=== PATIENT | male | born 2000 | race Caucasian/White ===

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

== ENCOUNTER 2022-04-25 15:36 | Emergency (ER) | payer OTHER, SELFPAY ==
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
[2022-04-25 15:50] VITALS: BP 132/70; PULSE 77; RESP 20; TEMP 37.1; O2SAT 98; BMI 21.0
[2022-04-25 16:58] VITALS: BP 132/70; PULSE 77; RESP 22; TEMP 37.1; O2SAT 98
== END 2022-04-25 16:58 | disposition home or self-care (01) ==
PROVIDERS: Emergency Provider Nurse Practitioner Family
DX: J32.8 Other chronic sinusitis (principal); B97.89 Other viral agents as the cause of diseases classified elsewhere
CPT/HCPCS: 99212; 99213; C9803; G0463; U0003; U0005

== ENCOUNTER 2022-05-01 09:12 | Emergency (ER) | payer OTHER, SELFPAY ==
[2022-05-01 09:13] VITALS: BP 129/89; PULSE 58; RESP 20; TEMP 36.6; O2SAT 99; BMI 20.9
[2022-05-01 09:28] VITALS: BMI 20.9
--- NOTE | 2022-05-01 09:28 | PC.NURSE ---
SHELLI PALOMINO at
--- NOTE | 2022-05-01 09:29 | CT_ITS ---
FINAL REPORT TECHNIQUE: Noncontrast CT exam of the abdomen and pelvis. This study was performed with techniques to keep radiation doses as low as reasonably achievable (ALARA). Individualized dose reduction techniques using automated exposure control or adjustment of mA and/or kV according to the patient's size were employed. CLINICAL HISTORY: L flank pain rad to groin FINDINGS: Abdomen: Lung bases are clear. Liver, gallbladder, spleen, pancreas and adrenal glands have a normal CT appearance in their limited unenhanced state. The kidneys show moderate left hydronephrosis and hydroureter secondary to 2 adjacent left UVJ stones measuring up to 3 mm and 4 mm in diameter. There are bilateral caliceal stones measuring 2 mm or less. No obvious renal mass is present. Pelvis: 2 adjacent the left UVJ stones are seen. Bladder is unremarkable. The appendix is normal. The bowel is unremarkable. No fluid collection or adenopathy is seen. IMPRESSION: 1. Moderate left hydronephrosis and hydroureter secondary to 2 adjacent left UVJ stones. 2. Bilateral nephrolithiasis. Reviewed, Interpreted and Dictated by Wally Wren MD Transcribed by Lorena Burris Authenticated and . [facility]
--- NOTE | 2022-05-01 09:30 | HMH.EDGENADL ---
Discharge Plan Disposition Patient Disposition: Home, Self-Care Condition: Good Prescriptions Prescriptions: New sulfamethoxazole-trimethoprim 800-160 mg tablet 1 tab PO BID 14 Days Qty: 28 0RF tamsulosin [Flomax] 0.4 mg capsule 0.4 mg PO DAILY 7 Days Qty: 7 0RF ondansetron 4 mg tablet,disintegrating 4 mg PO Q8H PRN (Reason: nausea and vomiting) 4 Days Qty: 12 0RF oxycodone 5 mg tablet 5 mg PO Q8H PRN (Reason: pain) Qty: 12 0RF ketorolac 10 mg tablet 10 mg PO Q8H PRN (Reason: pain) Qty: 20 0RF No Action naproxen 500 mg tablet 500 mg PO BID Label Comments: TAKE 1 TABLET 2 TIMES EACH DAY amoxicillin [amoxicillin] 500 mg tablet 500 mg PO TID 10 Days Qty: 30 0RF benzonatate [benzonatate] 100 mg capsule 100 mg PO TIDP PRN (Reason: Cough) Qty: 30 0RF methylprednisolone 4 mg Tablets,Dose Pack 4 mg PO DIRECTED Qty: 21 0RF Referrals Follow up/Referrals: Provider,Referral, MD [Primary Care Provider] - See instructions Activity Restrictions/Add. Instructions Additional Instructions/Restrictions: You were evaluated in the emergency department today and diagnosed with kidney stones. Please pick out hand your prescriptions at the pharmacy and take them as prescribed. You may follow-up outpatient with urology. We spoke with Dr. Grimm with [facility] regarding your care. You may call their office to set up an appointment at . Do not drive or operate heavy machinery while taking narcotic pain medication. Return to the emergency department for any new or worsening symptoms, such as fever, chills, intractable nausea and vomiting, worsening pain, or other concerns. Clinical Impressions Clinical Impression: Ureterolithiasis, Acute UTI Stand Alone Forms Stand Alone Forms: Work/School Release Instructions Patient Instructions: DI for Kidney Stones, DI for Urinary Tract Infection (UTI), DI for Acute Pain -- Adult Discharge ED Provider: Leia Amin General Adult HPI General Chief complaint: PAIN Stated complaint: pain in testicles, blood in urine Time Seen by Provider: 05/01/22 09:14 History of Present Illness HPI narrative: This patient is a 21-year-old male who denies significant past medical history presenting to the emergency department for evaluation of severe left flank pain radiating to his left testicle that started this morning. The pain is sharp and constant. Nothing seems to make it better or worse. He also notes that he has had blood in his urine. He denies any history of anything like this in the past. He denies any recent trauma. He is also experiencing nausea, chills, and diaphoresis. He also denies any testicular swelling, redness, or other concerns. Related Data Home Medications Medication Instructions Recorded Confirmed naproxen 500 mg tablet 500 mg PO BID . 04/25/22 04/25/22 Previous Rx's Medication Instructions Recorded amoxicillin 500 mg tablet 500 mg PO TID 10 days #30 tabs 04/25/22 benzonatate 100 mg capsule 100 mg PO TIDP PRN Cough #30 caps 04/25/22 methylprednisolone 4 mg tablets in 4 mg PO DIRECTED #21 tabs 04/25/22 a dose pack ketorolac 10 mg tablet 10 mg PO Q8H PRN pain #20 tabs 05/01/22 ondansetron 4 mg disintegrating 4 mg PO Q8H PRN nausea and 05/01/22 tablet vomiting 4 days #12 tabs oxycodone 5 mg tablet 5 mg PO Q8H PRN pain #12 tabs 05/01/22 sulfamethoxazole 800 1 tab PO BID 14 days #28 tabs 05/01/22 mg-trimethoprim 160 mg tablet tamsulosin 0.4 mg capsule (Flomax) 0.4 mg PO DAILY 7 days #7 caps 05/01/22 Allergies Allergy/AdvReac Type Severity Reaction Status Date / Time No Known Allergies Allergy Verified 04/25/22 15:57 [facility] Disclaimer: The information contained in this section may have been updated after the patient was seen, as this information can be updated by other users. Social History Smoking Status: Never smoker alcohol inta
[2022-05-01 09:36] LABS: Microscopic, Urine URINE MICROSCOPIC (MICROSCOPIC)
--- NOTE | 2022-05-01 09:38 | PC.NURSE ---
pt changed into a gown
--- NOTE | 2022-05-01 09:39 | PC.NURSE ---
pt to CT via wheelchair
[2022-05-01 09:40] LABS: Appearance,Urine TURBID (Clear); Bilirubin,Urine Negative (Negative); Blood, Urine 3+ (Negative); Color,Urine RED (Yellow); Glucose,Urine (UA) Negative (Negative); Ketones,Urine TRACE (Negative); Leukocyte Esterase,Urine TRACE (Negative); Nitrate,Urine POSITIVE (Negative); PH,Urine 7.5 (5.0-8.5); Protein,Urine 2+ (Negative)
[2022-05-01 09:42] LABS: Chloride 106 mmol/L (98-107); Potassium 3.6 mmoL/L (3.5-5.1); Sodium 143 mmol/L (136-145)
[2022-05-01 09:44] LABS: Alanine Aminotransferase 32 U/L (12-78); Aspartate Amino Transferase 28 U/L (17-59); Blood Urea Nitrogen 12 mg/dl (9-20); Creatinine Clearance Estimated 104 mL/min (50-200); Estimated Glomerular Filt Rate 86 ml/min (>60); GFR (African American) 104 ML/MIN (>60)
[2022-05-01 09:45] LABS: Albumin Level 4.6 g/dl (3.5-5.0); Albumin/Globulin Ratio 1.2 (1.1-1.8); Alkaline Phosphatase 89 U/L (38-126); Anion Gap 13.6 mEq/L (5-15); Bilirubin,Total 0.4 mg/dl (0.2-1.3); Calcium 9.3 mg/dl (8.4-10.2); Carbon Dioxide 27 mmol/L (22.0-30.0); Globulin 3.7 g/dL (1.3-3.2); Glucose 120 mg/dl (74-100); Total Protein,Serum 8.3 g/dl (6.3-8.2)
--- NOTE | 2022-05-01 09:49 | PC.NURSE ---
pt return from CT scan, reports pain has improved, sitting up in bed. States no needs at this time
[2022-05-01 09:51] LABS: Basophils # 0.1 K/mm3 (0-0.2); Basophils % 1.2 % (0.1-2.0); Eosinophils # 0.1 K/mm3 (0.0-0.4); Eosinophils % 1.4 % (0.1-12.0); Hematocrit 45.4 % (42.0-52.0); Hemoglobin 16.1 g/dL (14.1-18.0); Lymphocytes % 26.9 % (10-50); Mean Corpuscular HGB Conc 35.4 g/dL (31.8-35.4); Mean Corpuscular Hemoglobin 30.2 pg (27.0-31.2); Mean Corpuscular Volume 85.4 fl (80-94); Monocytes # 0.3 K/mm3 (0.1-1.0); Monocytes % 4.5 % (1.7-9.3); Neutrophils # 4.8 K/mm3 (1.8-7.8); Platelet Count 340 K/mm3 (142-424); Red Blood Count 5.31 M/mm3 (4.60-6.20); Red Cell Distribution Width 12.8 % (11.5-17.5); White Blood Count 7.3 K/mm3 (4.5-13.0)
[2022-05-01 09:55] LABS: Bacteria,Urine Trace /lpf; RBC,Urine TNTC #/hpf (0-3); WBC,Urine Occasional #/hpf (0-3)
[2022-05-01 09:57] VITALS: BP 132/78; PULSE 60; O2SAT 100
[2022-05-01 10:00] VITALS: BP 139/80; PULSE 59; O2SAT 100
[2022-05-01 10:31] VITALS: BP 130/62; PULSE 71; O2SAT 98
--- NOTE | 2022-05-01 10:44 | PC.NURSE ---
Rounded on patient, pts family at [facility]. no other needs at this time. call light within reach
--- NOTE | 2022-05-01 10:46 | PC.NURSE ---
pt ambulatory to restroom without complications
--- NOTE | 2022-05-01 10:50 | PC.NURSE ---
Contacting [facility] for Urology consult
--- NOTE | 2022-05-01 10:54 | PC.NURSE ---
Spoke with Lila in Radiology for an imaging disc
[2022-05-01 11:00] VITALS: BP 121/70; PULSE 67; O2SAT 98
--- NOTE | 2022-05-01 11:42 | PC.NURSE ---
Spoke with Yuliana at [facility] an she reports the patient is on a wait-list with [facility] at this time and [facility] cannot accept patient due to capacity
--- NOTE | 2022-05-01 11:58 | PC.NURSE ---
spoke with [facility] staff, states pt is on a wait list at [facility], they will call us when a bed is available. [facility], [facility] and [facility] had no bed availability.
--- NOTE | 2022-05-01 12:04 | PC.NURSE ---
Called [facility] about patient, they took info and stated they would call back and Dr would be Dr Grimm
--- NOTE | 2022-05-01 13:00 | PC.NURSE ---
SHELLI PALOMINO speaking with [facility]
[2022-05-01 13:34] VITALS: BP 137/80; PULSE 89; RESP 17; TEMP 36.8; O2SAT 97
== END 2022-05-01 13:41 | disposition home or self-care (01) ==
PROVIDERS: Emergency Provider Emergency Medicine
DX: N20.0 Calculus of kidney (principal); N39.0 Urinary tract infection, site not specified
CPT/HCPCS: 74176; 80053; 81001; 85025; 87086; 96361; 96365; 96375; 99285; J0696; J2405

== ENCOUNTER 2024-03-02 08:32 | Emergency (ER) | payer OTHER, SELFPAY ==
[2024-03-02] VITALS (7 sets, daily range): BP systolic 124–155; BP diastolic 78–90; PULSE 56–96; RESP 16–20; TEMP 36.8; O2SAT 96–100; BMI 18.1
[2024-03-02 09:00] LABS: Microscopic, Urine URINE MICROSCOPIC (MICROSCOPIC)
[2024-03-02 09:06] LABS: Basophils # 0.1 K/mm3 (0-0.2); Basophils % 0.6 % (0.1-2.0); Eosinophils % 0.4 % (0.1-12.0); Hematocrit 45.5 % (42.0-52.0); Hemoglobin 16.1 g/dL (14.1-18.0); Lymphocytes # 0.9 K/mm3 (0.7-4.5); Lymphocytes % 11.8 % (10-50); Mean Corpuscular HGB Conc 35.4 g/dL (31.8-35.4); Mean Corpuscular Hemoglobin 30.8 pg (27.0-31.2); Mean Platelet Volume 7.6 fl (7.4-10.4); Monocytes # 0.5 K/mm3 (0.1-1.0); Monocytes % 6.8 % (1.7-9.3); Neutrophils # 6.4 K/mm3 (1.8-7.8); Neutrophils % 80.5 % (37.0-80.0); Platelet Count 234 K/mm3 (142-424); Red Blood Count 5.23 M/mm3 (4.60-6.20); Red Cell Distribution Width 13.1 % (11.5-17.5)
[2024-03-02 09:13] LABS: Alanine Aminotransferase 18 U/L (12-78); Albumin/Globulin Ratio 1.5 (1.1-1.8); Alkaline Phosphatase 90 U/L (38-126); Anion Gap 16.8 mEq/L (5-15); Aspartate Amino Transferase 25 U/L (17-59); Bilirubin,Total 1.1 mg/dl (0.2-1.3); Blood Urea Nitrogen 14 mg/dl (9-20); Calcium 9.8 mg/dl (8.4-10.2); Carbon Dioxide 25 mmol/L (22.0-30.0); Chloride 103 mmol/L (98-107); Creatinine Clearance Estimated 89 mL/min (50-200); Estimated Glomerular Filt Rate 85 ml/min (>60); GFR (African American) 102 ML/MIN (>60); Globulin 3.4 g/dL (1.3-3.2); Glucose 105 mg/dl (74-100); Potassium 3.8 mmoL/L (3.5-5.1); Sodium 141 mmol/L (136-145); Total Protein,Serum 8.4 g/dl (6.3-8.2)
[2024-03-02 09:14] LABS: Appearance,Urine CLEAR (Clear); Blood, Urine 1+ (Negative); Color,Urine YELLOW (Yellow); Glucose,Urine (UA) Negative (Negative); Ketones,Urine 1+ (Negative); Leukocyte Esterase,Urine Negative (Negative); Nitrate,Urine Negative (Negative); Protein,Urine Negative (Negative); Specific Gravity, Urine 1.025 (1.005-1.030)
[2024-03-02 09:17] LABS: Bilirubin,Urine Negative (Negative)
[2024-03-02 09:20] LABS: Lactic Acid 1.4 mmol/L (0.7-2.1)
[2024-03-02] MEDS: KETOROLAC 30MG/ML VIAL 15 MG IV (09:20)
[2024-03-02] MEDS: POLYETHYLENE GLYCOL 3350 17 GM PACKET PO (09:21)
--- NOTE | 2024-03-02 09:45 | HMH.EDGENADL ---
Discharge Plan Disposition Chief Complaint: Abdominal Pain Prescriptions Prescriptions: No Action naproxen 500 mg tablet 500 mg PO BID Patient Comments: TAKE 1 TABLET 2 TIMES EACH DAY amoxicillin [amoxicillin] 500 mg tablet 500 mg PO TID 10 Days Qty: 30 0RF benzonatate [benzonatate] 100 mg capsule 100 mg PO TIDP PRN (Reason: Cough) Qty: 30 0RF methylprednisolone 4 mg Tablets,Dose Pack 4 mg PO DIRECTED Qty: 21 0RF sulfamethoxazole-trimethoprim 800-160 mg tablet 1 tab PO BID 14 Days Qty: 28 0RF tamsulosin [Flomax] 0.4 mg capsule 0.4 mg PO DAILY 7 Days Qty: 7 0RF ondansetron 4 mg tablet,disintegrating 4 mg PO Q8H PRN (Reason: nausea and vomiting) 4 Days Qty: 12 0RF oxycodone 5 mg tablet 5 mg PO Q8H PRN (Reason: pain) Qty: 12 0RF ketorolac 10 mg tablet 10 mg PO Q8H PRN (Reason: pain) Qty: 20 0RF Referrals Follow up/Referrals: Provider,Referral, MD [Primary Care Provider] - See instructions Activity Restrictions/Add. Instructions Additional Instructions/Restrictions: Take 1 capful of MiraLAX daily until having 1-2 soft bowel movements per day. Call your family doctor to establish care for this visit to the emergency department and schedule follow-up within 48 hours to ensure improvement. If you have any worsening of your condition or any other concerning signs or symptoms, return to the emergency department or your primary care doctor for further evaluation. Clinical Impressions Clinical Impression: Left lower quadrant abdominal pain Instructions Patient Instructions: DI for Acute Abdominal Pain Print Language Print Language: Monegasque Discharge ED Provider: Robel Wong General Adult HPI General Chief complaint: Abdominal Pain Stated complaint: back and abd pain Time Seen by Provider: 03/02/24 08:50 Mode of Arrival: Ambulatory Source of Information: Patient Limitations: No Limitations Description of Symptoms (Recalled from ER Triage Doc. by RN): pt states he has pain in his right lower abdomen that he describes feels empty . pt states he also has been having lower back pain since friday that is more so in his tail bone. pt states he has not been able to eat and he did force himself to have a bowel movement this morning that was hard and black. History of Present Illness HPI narrative: Please note that above description of symptoms, in this electronic medical record under categorization of recalled from ER triage doctor by RN are reflective of an initial nursing assessment, however, is not reflective of my full history and physical exam that was personally taken and clarified. Consequentially, this preceding description of symptoms, which may include the patient's categorized chief complaint in the EMR, do not reflect my personal clinical impression, and the ultimate description of history of present illness and patient stated complaints should be deferred to this section of the note. Unless stated otherwise or congruent with this section of the note, additional signs, symptoms, or incongruence should be interpreted as inaccurate with my clinical impression. Related Data Home Medications ?Medication ?Instructions ?Recorded ?Confirmed naproxen 500 mg tablet 500 mg PO BID . 04/25/22 04/25/22 Previous Rx's ?Medication ?Instructions ?Recorded amoxicillin 500 mg tablet 500 mg PO TID 10 days #30 tabs 04/25/22 benzonatate 100 mg capsule 100 mg PO TIDP PRN Cough #30 caps 04/25/22 methylprednisolone 4 mg tablets in 4 mg PO DIRECTED #21 tabs 04/25/22 a dose pack ketorolac 10 mg tablet 10 mg PO Q8H PRN pain #20 tabs 05/01/22 ondansetron 4 mg disintegrating 4 mg PO Q8H PRN nausea and 05/01/22 tablet vomiting 4 days #12 tabs oxycodone 5 mg tablet 5 mg PO Q8H PRN pain #12 tabs 05/01/22 sulfamethoxazole 800 1 tab PO BID 14 days #28 tabs 05/01/22 mg-trimethoprim 160 mg tablet tamsulosin 0.4 mg capsule (Flomax) 0.4 mg PO DAILY 7 days #7 caps 05/01/22 Allergies Allergy/AdvReac Type Severity Reaction Status Date / Time No Known Allergies Allergy Verified 04/25/22 15:57 [facility] Disclaimer: The information contained in this section may have been updated after the patient was seen, as this information can be updated by other users. Social History Smoking Status: Current every day smoker tobacco type: smokeless tobacco alcohol intake: never current occupational status: other ROS Obtained: Yes All systems reviewed & no additional complaints except as documented Physical Exam General General appearance: alert Head Head exam: atraumatic and normocephalic Eye Eye exam: Present normal appearance, PERRL and EOMI Neck Neck exam: Present normal inspection, full ROM and trachea midline Respiratory Respiratory exam: Absent respiratory distress, wheezes, stridor, accessory muscle use or prolonged expiratory phase Cardiovascular Cardiovascular exam: Present other (Pulses equal symmetric in upper and lower extremities) Abdominal Exam Abdominal exam: Present soft; Absent distention, tenderness, guarding, rebound, Vergara's sign, tenderness at McBurney's Point or pulsatile mass Extremities Exam Extremities exam: Absent edema Neurological Exam Neurological exam: Present alert, oriented X3 and CN II-XII intact; Absent motor sensory deficit Skin Skin exam: Present warm and dry; Absent diaphoresis or erythema Medical Decision Making Medical Records Medical records reviewed: Yes I reviewed the patient's medical records. Screening: Per USPSTF and CDC recommendations, given the prevalence of disease in our region, it is our hospital?s policy to screen for HIV and viral Hepatitis for all patients aged 18 and over and those with ongoing risk factors. Edmund Inquiry Pt receiving controlled substance: No Edmund was queried for this patient: No Vital Signs: 03/02/24 08:33 03/02/24 08:43 03/02/24 09:15 Temperature 98.3 F Temperature Source Oral Pulse Rate 96 H 64 Pulse Rate [Right Brachial] 84 Respiratory Rate 20 Blood Pressure [Right Arm] 155/90 H Blood Pressure Mean [Right Arm] 111 Blood Pressure Source [Right Arm] Automatic Cuff Blood Pressure Position [Right Arm] Supine 02 Sat by Pulse Oximetry 100 100 96 Oxygen Delivery Method Room Air 03/02/24 09:45 03/02/24 10:15 03/02/24 10:45 Temperature Temperature Source Pulse Rate 60 56 L 77 Pulse Rate [Right Brachial] Respiratory Rate Blood Pressure [Right Arm] Blood Pressure Mean [Right Arm] Blood Pressure Source [Right Arm] Blood Pressure Position [Right Arm] 02 Sat by Pulse Oximetry 97 98 99 Oxygen Delivery Method Lab Data Lab Results 03/02/24 08:45: WBC 8.0, RBC 5.23, Hgb 16.1, Hct 45.5, MCV 87.0, MCH 30.8, MCHC 35.4, RDW 13.1, Plt Count 234, MPV 7.6, Neut % (Auto) 80.5 H, Lymph % (Auto) 11.8, [place] % (Auto) 6.8, Eos % (Auto) 0.4, Baso % (Auto) 0.6, Neut # (Auto) 6.4, Lymph # (Auto) 0.9, [place] # (Auto) 0.5, Eos # (Auto) 0.0, Baso # (Auto) 0.1, Sodium 141, Potassium 3.8, Chloride 103, Carbon Dioxide 25, Anion Gap 16.8 H, BUN 14, Creatinine 1.10, Estimated Creat Clear 89, Estimated GFR 85, Est GFR ( Amer) 102, Glucose 105 H, Calcium 9.8, Total Bilirubin 1.1, AST 25, ALT 18, Alkaline Phosphatase 90, Total Protein 8.4 H, Albumin 5.0, Globulin 3.4 H, Albumin/Globulin Ratio 1.5 03/02/24 08:52: Urine Color Yellow, Urine Appearance Clear, Urine pH 6.0, Ur Specific [place] 1.025, Urine Protein Negative, Urine Glucose (UA) Negative, Urine Ketones 1+, Urine Blood 1+ A, Urine Nitrate Negative, Urine Bilirubin Negative, Urine Urobilinogen 1.0, Ur Leukocyte Esterase Negative, Urine RBC Occasional, Urine WBC Occasional, Ur Squamous Epith Cells Occasional, Urine Bacteria None 03/02/24 08:54: Lactate 1.4, Direct Bilirubin 0.4, Lipase 45 03/02/24 08:45 03/02/24 08:45 Orders (Tests/Meds): ED MEDICATIONS Generic Name Dose Route Start Last Admin Trade Name Freq PRN Reason Stop Dose Admin Sodium Chloride 10 ml 03/02/24 08:51 Sodium Chloride 0.9% 10ml Flush Syringe IV 04/01/24 08:50 NEEDED PRN Maintain IV Site Discontinued Medications Generic Name Dose Route Start Last Admin Trade Name Freq PRN Reason Stop Dose Admin Iopamidol 75 ml 03/02/24 10:39 03/02/24 10:40 Iopamidol-370 (76%);100ml Bottle IV 03/02/24 10:40 75 ml ONCE ONE Administration Ketorolac Tromethamine 15 mg 03/02/24 09:10 03/02/24 09:20 Ketorolac 30mg/Ml Vial IV 03/02/24 09:11 15 mg ONCE ONE Administration Polyethylene Glycol 17 gm 03/02/24 09:10 03/02/24 09:21 Polyethylene Glycol 3350 17 Gm Packet PO 03/02/24 09:11 17 gm ONCE ONE Administration Sodium Chloride 10 ml 03/02/24 10:39 03/02/24 10:40 Sodium Chloride 0.9% 10ml Syr (Rad Only) IV 03/02/24 10:40 10 ml ONCE ONE Administration ORDERS Category Date Time Status CT abdomen pelvis w con Stat Cat Scan 03/02/24 10:29 Completed Bilirubin,Direct Stat Lab 03/02/24 08:54 Completed Complete Blood Count Auto Diff Stat Lab 03/02/24 08:45 Completed Comprehensive Metabolic Panel Stat Lab 03/02/24 08:45 Completed HIV (1&2) Antibody Rapid Stat Lab 03/02/24 08:45 Received Hep C Ab with Reflex to RNA Stat Lab 03/02/24 08:45 Received Lactic Acid Stat Lab 03/02/24 08:54 Completed Lipase Stat Lab 03/02/24 08:54 Completed UA [Urinalysis and Microscopic] Stat Lab 03/02/24 08:52 Completed Medical Decision Narrative: 23-year-old male no relevant medical history presenting with abdominal pain. Patient states that he is chronically constipated, last bowel movement was today and was dark, which is what prompted him to come in. States he was taking Pepto-Bismol for the last day in order to help his abdominal discomfort. States that is 6 out of 10, left lower quadrant, does not radiate. Still passing gas, no abdominal surgical history. No vomiting. No flank tenderness. No fevers or chills or any other relevant history. Also denies any bulging in his groin, scrotum, testicular pain or penile pain. Has not taken anything for the pain. History was obtained via conversation with patient. On arrival, patient hemodynamically stable, alert, oriented x4, appropriate, GCS 15, moving all extremities spontaneously, pupils equal and reactive to light. Full physical exam performed and significant for well-appearing male no acute distress. Abdomen soft, nontender, nondistended. No overlying skin change. No flank tenderness. Unremarkable exam overall. Differential includes constipation, enteritis, gastritis, gas pains, pancreatitis, SBO, colitis, diverticulitis, nephrolithiasis, UTI, cholecystitis, choledocholithiasis, appendicitis, less likely torsion, hepatitis, aortic pathology, mesenteric ischemia among others. Patient placed on continuous cardiac monitoring and continuous pulse ox with initial blood pressure 155/90, heart rate 84, saturation 100% on room air. Patient was given Toradol and MiraLAX for symptomatic management and correction of underlying abnormalities. Workup independently interpreted and significant for normal white count, nonactionable CBC. Chemistry nonactionable. Lipase negative. Urinalysis with isolated blood. On independent interpretation of imaging, no acute intra-abdominal abnormality. Phleboliths in the left pelvis. See radiology read for full review of final results. On reevaluation, patient resting comfortably. Given patient presentation, workup, history, this most likely represents passed nephrolithiasis versus gas pains. Because I do not have a definitive diagnosis, close return precautions were discussed. Recommended patient follow-up with his family doctor. He voices understanding. Because patient at baseline without signs or symptoms of clinical decompensation, deemed appropriate for discharge. Results were relayed to patient who voiced understanding and were agreeable to outpatient management and follow up. I discussed my clinical impression with patient and answered all questions. At this time, the evidence for any other entities in the differential is insufficient to warrant any further testing or ED observation. This was explained as well. Advisory was given that persistent or worsening symptoms require further evaluation. I confirmed the understanding of this discussion. Family Service Counselor disclaimer Much of this encounter note is an electronic portfolio strategist spoken language to printed text. Electronic portfolio strategist of the spoken language may permit errors. Although I have reviewed the note, some errors may still exist. Critical Care Critical Care Time Critical Care Time: No
[2024-03-02 10:16] LABS: RBC,Urine Occasional #/hpf (0-3); Squamous Epithelial Cell,Urine Occasional #/hpf (0-5); WBC,Urine Occasional #/hpf (0-3)
--- NOTE | 2024-03-02 10:29 | CT_ITS ---
FINAL REPORT TECHNIQUE: Thin section axial images were obtained through the abdomen after intravenous contrast. Reconstruction images were obtained from the axial data. Exam was performed using dose reduction techniques. This study was performed with techniques to keep radiation doses as low as reasonably achievable (ALARA). Individualized dose reduction techniques using automated exposure control or adjustment of mA and/or kV according to the patient's size were employed. CLINICAL HISTORY: LLQ pain, hematuria COMPARISON: 05/01/2022 FINDINGS: The lung bases are clear. The liver is homogeneous. The gallbladder is present. The spleen, adrenal glands, and pancreas are unremarkable. There is no hydronephrosis or solid renal mass. There are a few tiny nonobstructing right renal stones. The previously seen left distal ureteral stones on the prior CT of 2022 are no longer visualized. Abdominal GI tract is without acute abnormality. There is no abdominal lymphadenopathy or ascites. The pelvic solid organs are unremarkable. The pelvic portions of the GI tract, including the appendix, are without acute abnormality. There is no pelvic lymphadenopathy or ascites. No acute osseous abnormalities identified. IMPRESSION: No CT evidence of acute intra-abdominal or intrapelvic abnormality. Reviewed, Interpreted and Dictated by Noa Russ MD Transcribed by Valarie Devlin Authenticated and [facility]
[2024-03-02 10:35] LABS: Bilirubin,Direct 0.4 mg/dl (0.0-0.4); Lipase 45 U/L (23-300)
[2024-03-02] MEDS: IOPAMIDOL-370 (76%);100ML BOTTLE 75 ML IV (10:40)
[2024-03-02] MEDS: SODIUM CHLORIDE 0.9% 10ML SYR (RAD ONLY) 10 ML IV (10:40)
[2024-03-02 13:48] LABS: HIV (1&2) Antibody Rapid NONREACTIVE (NONREACTIVE)
[2024-03-03 08:22] LABS: HCV Ab Non Reactive (Non Reactive)
== END 2024-03-02 12:57 | disposition home or self-care (01) ==
PROVIDERS: Emergency Provider Emergency Medicine
DX: K59.00 Constipation, unspecified (principal); R10.32 Left lower quadrant pain; M54.50 Low back pain, unspecified
CPT/HCPCS: 74177; 80053; 81001; 82248; 83605; 83690; 85025; 86803; 87389; 96374; 99285; J1885; Q9967

== ENCOUNTER 2024-03-02 19:46 | Emergency (ER) | payer OTHER, SELFPAY ==
[2024-03-02 19:46] VITALS: BP 115/63; PULSE 55; RESP 20; TEMP 36.7; O2SAT 99; BMI 18.1
[2024-03-02 20:16] VITALS: BP 115/63; PULSE 50; O2SAT 99
--- NOTE | 2024-03-02 20:28 | HMH.EDGENADL ---
Discharge Plan Disposition Patient Disposition: Home, Self-Care Condition: Good Prescriptions Prescriptions: No Action naproxen 500 mg tablet 500 mg PO BID Patient Comments: TAKE 1 TABLET 2 TIMES EACH DAY amoxicillin [amoxicillin] 500 mg tablet 500 mg PO TID 10 Days Qty: 30 0RF benzonatate [benzonatate] 100 mg capsule 100 mg PO TIDP PRN (Reason: Cough) Qty: 30 0RF methylprednisolone 4 mg Tablets,Dose Pack 4 mg PO DIRECTED Qty: 21 0RF sulfamethoxazole-trimethoprim 800-160 mg tablet 1 tab PO BID 14 Days Qty: 28 0RF tamsulosin [Flomax] 0.4 mg capsule 0.4 mg PO DAILY 7 Days Qty: 7 0RF ondansetron 4 mg tablet,disintegrating 4 mg PO Q8H PRN (Reason: nausea and vomiting) 4 Days Qty: 12 0RF oxycodone 5 mg tablet 5 mg PO Q8H PRN (Reason: pain) Qty: 12 0RF ketorolac 10 mg tablet 10 mg PO Q8H PRN (Reason: pain) Qty: 20 0RF Referrals Follow up/Referrals: Poncho Somers II, MD [Staff Physician] - See instructions (Bright red blood per rectum) Provider,MD Juan [Primary Care Provider] - See instructions Activity Restrictions/Add. Instructions Additional Instructions/Restrictions: Sinew the bowel regimen you were prescribed earlier. 2-3 loose stools a day is enough and you can decrease your MiraLAX if you are having more than that. I have referred you to gastroenterology for an endoscopic evaluation. If you continue to have problems follow-up with your PCP or return to the ER as needed. Clinical Impressions Clinical Impression: BRBPR (bright red blood per rectum) Instructions Patient Instructions: DI for Gastrointestinal Bleeding Print Language Print Language: Persian Discharge ED Provider: Drake Mcmahan Adult HPI <JING Witt - Last Filed: 03/02/24 21:20> General Chief complaint: GI Bleed Stated complaint: blood in stool Time Seen by Provider: 03/02/24 20:28 Mode of Arrival: Ambulatory Source of Information: Patient Limitations: No Limitations Description of Symptoms (Recalled from ER Triage Doc. by RN): Pt here with c/o rectal bleeding that started around 0900 this am. Reports noticing bright red blood while trying to defecate. Pt denies pain and denies active bleeding at this time. History of Present Illness HPI narrative: Patient presents for bright red blood per rectum. Patient was seen in the ER earlier today and diagnosed with constipation. He has since had 3 bowel movements that were not straining. On the last 1 however he did not have stool but just pass gas and noticed blood on the toilet paper. He did not notice blood in the bowl. He has no rectal pain. He denies dizziness abdominal pain hemoptysis hematochezia hematemesis melena. Related Data Home Medications ?Medication ?Instructions ?Recorded ?Confirmed naproxen 500 mg tablet 500 mg PO BID . 04/25/22 04/25/22 Previous Rx's ?Medication ?Instructions ?Recorded amoxicillin 500 mg tablet 500 mg PO TID 10 days #30 tabs 04/25/22 benzonatate 100 mg capsule 100 mg PO TIDP PRN Cough #30 caps 04/25/22 methylprednisolone 4 mg tablets in 4 mg PO DIRECTED #21 tabs 04/25/22 a dose pack ketorolac 10 mg tablet 10 mg PO Q8H PRN pain #20 tabs 05/01/22 ondansetron 4 mg disintegrating 4 mg PO Q8H PRN nausea and 05/01/22 tablet vomiting 4 days #12 tabs oxycodone 5 mg tablet 5 mg PO Q8H PRN pain #12 tabs 05/01/22 sulfamethoxazole 800 1 tab PO BID 14 days #28 tabs 05/01/22 mg-trimethoprim 160 mg tablet tamsulosin 0.4 mg capsule (Flomax) 0.4 mg PO DAILY 7 days #7 caps 05/01/22 Allergies Allergy/AdvReac Type Severity Reaction Status Date / Time No Known Allergies Allergy Verified 03/02/24 20:37 PFS <JING Witt - Last Filed: 03/02/24 21:20> PFS Disclaimer: The information contained in this section may have been updated after the patient was seen, as this information can be updated by other users. Social History Smoking Status: Current every day smoker tobacco type: smokeless tobacco alcohol intake: never current occupational status: other <JING Witt - Last Filed: 03/02/24 21:20> ROS Obtained: Yes Systems reviewed as appropriate & no additional complaints except as documented Physical Exam <JING Witt - Last Filed: 03/02/24 21:20> General General appearance: alert and in no apparent distress Respiratory Respiratory exam: Present normal lung sounds bilaterally Cardiovascular Cardiovascular exam: Present regular rate Neurological Exam Neurological exam: Present alert and oriented X3 Medical Decision Making <JING Witt - Last Filed: 03/02/24 21:20> Medical Records Medical records reviewed: Yes I reviewed the patient's medical records. Screening: Per USPSTF and CDC recommendations, given the prevalence of disease in our region, it is our hospital?s policy to screen for HIV and viral Hepatitis for all patients aged 18 and over and those with ongoing risk factors. Edmund Inquiry Pt receiving controlled substance: No Vital Signs: 03/02/24 19:46 03/02/24 20:16 03/02/24 21:27 Temperature 98.0 F 97.9 F Temperature Source Oral Oral Pulse Rate 50 L 57 L Pulse Rate [Apical] 55 L Respiratory Rate 20 18 Blood Pressure 115/63 116/71 Blood Pressure [Right Arm] 115/63 Blood Pressure Mean [Right Arm] 80 02 Sat by Pulse Oximetry 99 99 Oxygen Delivery Method Room Air Room Air Lab Data Lab results reviewed: Yes I reviewed the patient's lab results. Lab Results 03/02/24 20:32: Stool Occult Blood Negative Orders (Tests/Meds): ORDERS Category Date Time Status Occult Blood,Stool Stat Lab 03/02/24 20:32 Completed Medical Decision Narrative: In summary patient is a 23-year-old male who presents to the emergency department for evaluation of bright red blood per rectum. Patient is dynamically stable upon arrival, afebrile. Physical exam is remarkable for no visible external hemorrhoids, no visible skin irritation around the rectum although the patient is quite hirsute and is difficult to tell, digital rectal exam reveals no palpable hemorrhoids or masses in the rectal vault and the rectal vault is empty. He does have dark green-colored residual in the rectal vault that was sent to the lab for occult blood testing.. Differential diagnosis includes GI bleed versus colitis although imaging done earlier today did not suggest that nor did his HAIR, or skin irritation out of site in the rectal vault etc. Initial workup will be conducted with stool for occult blood for now. And stool for occult blood is negative. Given that the patient is hemodynamically stable and has had no stigmata of actual fulminant GI bleed we will discharge the patient home with continued bowel regimen and refer to gastroenterology for endoscopic evaluation. Patient given strict return precautions. <Drake Mcmahan MD - Last Filed: 03/02/24 21:49> Vital Signs: 03/02/24 19:46 03/02/24 20:16 03/02/24 21:27 Temperature 98.0 F 97.9 F Temperature Source Oral Oral Pulse Rate 50 L 57 L Pulse Rate [Apical] 55 L Respiratory Rate 20 18 Blood Pressure 115/63 116/71 Blood Pressure [Right Arm] 115/63 Blood Pressure Mean [Right Arm] 80 02 Sat by Pulse Oximetry 99 99 Oxygen Delivery Method Room Air Room Air Lab Data Lab Results 03/02/24 20:32: Stool Occult Blood Negative Orders (Tests/Meds): ORDERS Category Date Time Status Occult Blood,Stool Stat Lab 03/02/24 20:32 Completed Medical Decision Narrative: In summary patient is a 23-year-old male who presents to the emergency department for evaluation of bright red blood per rectum. Patient is dynamically stable upon arrival, afebrile. Physical exam is remarkable for no visible external hemorrhoids, no visible skin irritation around the rectum although the patient is quite hirsute and is difficult to tell, digital rectal exam reveals no palpable hemorrhoids or masses in the rectal vault and the rectal vault is empty. He does have dark green-colored residual in the rectal vault that was sent to the lab for occult blood testing.. Differential diagnosis includes GI bleed versus colitis although imaging done earlier today did not suggest that nor did his HAIR, or skin irritation out of site in the rectal vault etc. Initial workup will be conducted with stool for occult blood for now. And stool for occult blood is negative. Given that the patient is hemodynamically stable and has had no stigmata of actual fulminant GI bleed we will discharge the patient home with continued bowel regimen and refer to gastroenterology for endoscopic evaluation. Patient given strict return precautions. I was available for consultation. Signed, Drake Mcmahan MD Critical Care <JING Witt - Last Filed: 03/02/24 21:20> Critical Care Time Critical Care Time: No
[2024-03-02 20:43] LABS: Occult Blood,Stool Negative (Negative)
[2024-03-02 21:27] VITALS: BP 116/71; PULSE 57; RESP 18; TEMP 36.6; O2SAT 99
== END 2024-03-02 21:28 | disposition home or self-care (01) ==
PROVIDERS: Physician Assistant; Emergency Provider Emergency Medicine
DX: K62.5 Hemorrhage of anus and rectum (principal)
CPT/HCPCS: 82272; 99283; G0328

== ENCOUNTER 2024-03-06 18:32 | Emergency (ER) | payer OTHER, SELFPAY ==
[2024-03-06 18:32] VITALS: BP 144/95; PULSE 86; RESP 16; TEMP 36.7; O2SAT 100; BMI 17.5
--- NOTE | 2024-03-06 18:35 | ECG_ITS ---
APPROVED REPORT Exam: Resting ECG HR:70 bpm ECG Measurements Heart Rate 70 AXES NJ 142 P 75 QRSd 110 QRS 65 QT 383 T 58 QTc 403 Conclusion SINUS RHYTHM WITH SINUS ARRHYTHMIA INCOMPLETE RIGHT BUNDLE BRANCH BLOCK [90+ ms QRS DURATION, TERMINAL R IN V1/V2, 40+ ms S IN I/aVL/V4/V5/V6] BORDERLINE ECG No STEMI Electronically signed by : VALERIO ODONNELL, 03/09/2024 06:35:13
--- NOTE | 2024-03-06 18:43 | XR_ITS ---
PROCEDURE INFORMATION: Exam: XR Chest Exam date and time: 03/06/2024 7:05 PM Age: 23 years old Clinical indication: Shortness of breath; Additional info: SOA TECHNIQUE: Imaging protocol: Radiologic exam of the chest. Views: 1 view. COMPARISON: CT ABDOMEN PELVIS W CON 03/02/2024 10:37 AM FINDINGS: Lungs: No evidence of acute pulmonary disease or infiltrates Pleural spaces: No large effusion or pneumothorax. Heart/Mediastinum: No evidence of mediastinal widening or cardiac silhouette enlargement; the mediastinum and heart appear within normal limits for contour and size. Bones/joints: No evidence of acute osseous abnormalities within the visualized portions of the thoracic spine and ribs. Osseous structures appear appropriate for patient age. IMPRESSION: No dense parenchymal consolidation, pleural effusion, or pneumothorax.
[2024-03-06] MEDS: ACETAMINOPHEN 1,000MG/100ML VIAL 1000 MG IV (18:49)
[2024-03-06] MEDS: KETOROLAC 30MG/ML VIAL 30 MG IV (18:49)
[2024-03-06] MEDS: hydrOXYzine pamoate 25MG CAPSULE 50 MG PO (18:49)
[2024-03-06 18:50] LABS: Basophils # 0.1 K/mm3 (0-0.2); Basophils % 0.9 % (0.1-2.0); Eosinophils # 0.1 K/mm3 (0.0-0.4); Eosinophils % 0.7 % (0.1-12.0); Hematocrit 47.8 % (42.0-52.0); Hemoglobin 16.8 g/dL (14.1-18.0); Lymphocytes # 1.3 K/mm3 (0.7-4.5); Lymphocytes % 19.9 % (10-50); Mean Corpuscular HGB Conc 35.1 g/dL (31.8-35.4); Mean Corpuscular Hemoglobin 30.1 pg (27.0-31.2); Mean Corpuscular Volume 85.9 fl (80-94); Mean Platelet Volume 7.5 fl (7.4-10.4); Monocytes # 0.3 K/mm3 (0.1-1.0); Monocytes % 5.3 % (1.7-9.3); Neutrophils # 4.7 K/mm3 (1.8-7.8); Neutrophils % 73.2 % (37.0-80.0); Platelet Count 268 K/mm3 (142-424); Red Blood Count 5.56 M/mm3 (4.60-6.20); White Blood Count 6.4 K/mm3 (4.8-10.8)
[2024-03-06] MEDS: ONDANSETRON 4MG ODT 4 MG SL (18:50)
--- NOTE | 2024-03-06 18:52 | US_ITS ---
PROCEDURE INFORMATION: Exam: US Scrotum Exam date and time: 03/06/2024 7:32 PM Age: 23 years old Clinical indication: Scrotum pain; Additional info: R testicular pain TECHNIQUE: Imaging protocol: Real-time ultrasound of the scrotum and contents with color Doppler and image documentation. COMPARISON: CT ABDOMEN PELVIS W CON 03/02/2024 10:37 AM FINDINGS: Right testicle: The right testicle demonstrates normal arterial inflow and venous outflow. Right testicle measures 3.8 x 2.0 x 2.8 cm. Left testicle: The left testicle demonstrates normal arterial inflow venous outflow. Left testicle measures 3.9 x 1.8 x 2.3 cm. Epididymides: Normal. Scrotum/soft tissues: Normal. No hydroceles. IMPRESSION: Unremarkable scrotal ultrasound. Normal vascular flow to both testes.
--- NOTE | 2024-03-06 18:54 | PC.NURSE ---
Notified radiology to call in u/s for scrotal u/s
--- NOTE | 2024-03-06 18:55 | ED_ITS ---
Discharge Plan Disposition Patient Disposition: Home, Self-Care Condition: Good Prescriptions Prescriptions: New hydroxyzine pamoate [Vistaril] 25 mg capsule 25 mg PO QID PRN (Reason: itching) Qty: 20 0RF No Action naproxen 500 mg tablet 500 mg PO BID Patient Comments: TAKE 1 TABLET 2 TIMES EACH DAY amoxicillin [amoxicillin] 500 mg tablet 500 mg PO TID 10 Days Qty: 30 0RF benzonatate [benzonatate] 100 mg capsule 100 mg PO TIDP PRN (Reason: Cough) Qty: 30 0RF methylprednisolone 4 mg Tablets,Dose Pack 4 mg PO DIRECTED Qty: 21 0RF sulfamethoxazole-trimethoprim 800-160 mg tablet 1 tab PO BID 14 Days Qty: 28 0RF tamsulosin [Flomax] 0.4 mg capsule 0.4 mg PO DAILY 7 Days Qty: 7 0RF ondansetron 4 mg tablet,disintegrating 4 mg PO Q8H PRN (Reason: nausea and vomiting) 4 Days Qty: 12 0RF oxycodone 5 mg tablet 5 mg PO Q8H PRN (Reason: pain) Qty: 12 0RF ketorolac 10 mg tablet 10 mg PO Q8H PRN (Reason: pain) Qty: 20 0RF Referrals Follow up/Referrals: Provider,Referral, MD [Primary Care Provider] - See instructions Activity Restrictions/Add. Instructions Additional Instructions/Restrictions: At this time it was felt you are safe to be discharged home. If new or worsening symptoms please do not hesitate to return the emergency department. Clinical Impressions Clinical Impression: Chest pain, Anxiety, Pain in scrotum, Hematuria, microscopic, Cannabis withdrawal Instructions Patient Instructions: DI for Atypical Chest Pain, DI for Anxiety -- Adult Print Language Print Language: Telugu Discharge ED Provider: Laci Lopez HPI <Delgado Yoon ([facility]), MANAGER VISUAL - Last Filed: 03/06/24 20:21> General Chief Complaint: Chest Pain Stated Complaint: Chest Pain, Headache Time Seen by Provider: 03/06/24 18:35 Mode of Arrival: Ambulatory Source of Information: Patient Limitations: No Limitations Description of Symptoms (Recalled from ER Triage Doc. by RN): Patient states that it feels like someone is sitting on his chest and his fingers feel tingly. States that he had ems come check him out earlier today and everything checked out fine and he calmed down. Now states it is doing it again so he came to be checked out. History of Present Illness HPI narrative: 23-year-old male presents for complaints of feels like someone sitting on my chest and my fingers are tingly . Patient states earlier today he had EMS come to check him out due to the pressure in his chest and his fingers tingly and everything went away once he calmed down. Patient states the pain came back so he came to the ER for evaluation. Patient states he also has a headache in the back of his head that runs into his eyes. Patient states he has a history of headaches but these are little different. Patient states they start in the back of his head where the his other headaches started in the front of his head. Patient states he is also having a testicle pain on the right side. Patient states he was in the ER a few days ago for rectal bleeding and has a colonoscopy scheduled for Friday. Patient's states he stopped smoking marijuana 2 weeks ago, patient states he smoked it for over 4 years and numerous times a day. But stop smoking the bowl and started doing the THC vapes for a few days and then read on the Internet where they were bad so he stopped those also. MD complaint: chest pain Onset (ago): day(s) Duration: intermittent Pain location: substernal Severity: mild Quality: heaviness Pain radiation: none Risk Factors for CAD: Smoking Treatments prior to or on arrival for Cardiac Chest Pain: none Related Data Home Medications ?Medication ?Instructions ?Recorded ?Confirmed naproxen 500 mg tablet 500 mg PO BID . 04/25/22 04/25/22 Previous Rx's ?Medication ?Instructions ?Recorded amoxicillin 500 mg tablet 500 mg PO TID 10 days #30 tabs 04/25/22 benzonatate 100 mg capsule 100 mg PO TIDP PRN Cough #30 caps 04/25/22 methylprednisolone 4 mg tablets in 4 mg PO DIRECTED #21 tabs 04/25/22 a dose pack ketorolac 10 mg tablet 10 mg PO Q8H PRN pain #20 tabs 05/01/22 ondansetron 4 mg disintegrating 4 mg PO Q8H PRN nausea and 05/01/22 tablet vomiting 4 days #12 tabs oxycodone 5 mg tablet 5 mg PO Q8H PRN pain #12 tabs 01/25/23 sulfamethoxazole 800 1 tab PO BID 14 days #28 tabs 05/01/22 mg-trimethoprim 160 mg tablet tamsulosin 0.4 mg capsule (Flomax) 0.4 mg PO DAILY 7 days #7 caps 05/01/22 hydroxyzine pamoate 25 mg capsule 25 mg PO QID PRN itching #20 caps 03/06/24 (Vistaril) Allergies Allergy/AdvReac Type Severity Reaction Status Date / Time No Known Allergies Allergy Verified 03/02/24 20:37 PFSH <Delgado Yoon ([facility]), MANAGER VISUAL - Last Filed: 03/06/24 20:21> PFSH Disclaimer: The information contained in this section may have been updated after the patient was seen, as this information can be updated by other users. Social History , MANAGER VISUAL) Smoking Status: Former smoker tobacco type: smokeless tobacco alcohol intake: never current occupational status: other <Delgado [facility] MANAGER VISUAL - Last Filed: 03/06/24 20:21> ROS Obtained: Yes Systems reviewed as appropriate & no additional complaints except as documented Constitutional Constitutional: Reports headache(s) ENT Ears, Nose, Mouth, and Throat: Reports headache(s) Cardiovascular Cardiovascular: Reports system reviewed and no additional complaints, except as documented, Reports as per HPI and Reports chest pain Gastrointestinal Gastrointestingal: Reports system reviewed and no additional complaints, except as documented Genitourinary Male Genitourinary: Reports system reviewed and no additional complaints, except as documented, Reports as per HPI and Reports testicular pain Neurologic Neurologic: Reports system reviewed and no additional complaints, except as documented, Reports as per HPI and Reports headache(s) Physical Exam <[facility]gado [facility] MANAGER VISUAL - Last Filed: 03/06/24 20:21> General General appearance: alert and in no apparent distress Head Head exam: atraumatic Eye Eye exam: Present normal appearance, PERRL and EOMI ENT ENT exam: Present normal exam Respiratory Respiratory exam: Present normal lung sounds bilaterally Cardiovascular Cardiovascular exam: Present regular rate and normal rhythm Abdominal Exam Abdominal exam: Present soft and normal bowel sounds; Absent tenderness exam: Present normal inspection and testicular tenderness Neurological Exam Neurological exam: Present alert, oriented X3, CN II-XII intact and normal gait Skin Skin exam: Present warm and intact HEART Score <Clayjenna rasta ([facility]), MANAGER VISUAL - Last Filed: 03/06/24 20:21> HEART Score HEART Score assessment performed?: Yes History (anamnesis): Slightly suspicious ECG: Normal Age: <45 years Risk factors: No known risk factors Troponin: </= normal limit HEART Score: 0 <Laci Lopez MD - Last Filed: 03/06/24 20:26> HEART Score HEART Score: 0 Critical Care <Clayjenna Yoon ([facility]), MANAGER VISUAL - Last Filed: 03/06/24 20:21> Critical Care Time Critical Care Time: No Medical Decision Making <Delgado Yoon ([facility]), MANAGER VISUAL - Last Filed: 03/06/24 20:21> Edmund Inquiry Pt receiving controlled substance: No Edmund was queried for this patient: No Vital Signs Vital Signs: 03/06/24 18:32 Temperature 98.0 F Temperature Source Oral Pulse Rate [Radial] 86 Respiratory Rate 16 Blood Pressure [Right Arm] 144/95 H Blood Pressure Mean [Right Arm] 111 Blood Pressure Source [Right Arm] Automatic Cuff Blood Pressure Position [Right Arm] Sitting 02 Sat by Pulse Oximetry 100 Oxygen Delivery Method Room Air Lab Data Labs: Lab Results 03/06/24 18:30: WBC 6.4, RBC 5.56, Hgb 16.8, Hct 47.8, MCV 85.9, MCH 30.1, MCHC 35.1, RDW 13.0, Plt Count 268, MPV 7.5, Neut % (Auto) 73.2, Lymph % (Auto) 19.9, [place] % (Auto) 5.3, Eos % (Auto) 0.7, Baso % (Auto) 0.9, Neut # (Auto) 4.7, Lymph # (Auto) 1.3, [place] # (Auto) 0.3, Eos # (Auto) 0.1, Baso # (Auto) 0.1, D-Dimer 0.31, Sodium 142, Potassium 3.7, Chloride 102, Carbon Dioxide 27, Anion Gap 16.7 H, BUN 10, Creatinine 1.10, Estimated Creat Clear 86, Estimated GFR 85, Est GFR ( Amer) 102, Glucose 94, Calcium 9.8, Total Bilirubin 0.7, AST 26, ALT 18, Alkaline Phosphatase 72, Troponin I < 0.01, Total Protein 8.3 H, Albumin 5.2 H, Globulin 3.1, Albumin/Globulin Ratio 1.7, TSH 1.47, Thyroxine (T4) 11.1 H 03/06/24 19:30: Urine Color Dark yellow, Urine Appearance Slightly cloudy, Urine pH 6.0, Ur Specific [place] >= 1.030, Urine Protein Negative, Urine Glucose (UA) Negative, Urine Ketones Trace, Urine Blood 1+ A, Urine Nitrate Negative, Urine Bilirubin 1+ A, Urine Urobilinogen 0.2, Ur Leukocyte Esterase Negative, Urine RBC 5-10, Urine WBC None, Ur Squamous Epith Cells Occasional, Urine Bacteria None 03/06/24 18:30 03/06/24 18:30 Response Orders (Tests/Meds): ED MEDICATIONS Discontinued Medications Generic Name Dose Route Start Last Admin Trade Name Freq PRN Reason Stop Dose Admin Acetaminophen 1,000 mg 03/06/24 18:43 03/06/24 18:49 Acetaminophen 1,000mg/100ml Vial IV 03/06/24 18:44 1,000 mg ONCE ONE Administration Hydroxyzine Pamoate 50 mg 03/06/24 18:43 03/06/24 18:49 Hydroxyzine Pamoate 25mg Capsule PO 03/06/24 18:44 50 mg ONCE ONE Administration Ketorolac Tromethamine 30 mg 03/06/24 18:43 03/06/24 18:49 Ketorolac 30mg/Ml Vial IV 03/06/24 18:44 30 mg ONCE ONE Administration Ondansetron HCl 4 mg 03/06/24 18:43 03/06/24 18:50 Ondansetron 4mg Odt SL 03/06/24 18:44 4 mg ONCE ONE Administration ORDERS Category Date Time Status CXR --portable [XR chest portable] Stat Exams 03/06/24 18:43 Completed CBC w/Auto Diff [Complete Blood Count Auto Diff] Stat Lab 03/06/24 18:30 Completed CMP [Comprehensive Metabolic Panel] Stat Lab 03/06/24 18:30 Completed D-Dimer Stat Lab 03/06/24 18:30 Completed T4 (Thyroxine) Stat Lab 03/06/24 18:30 Completed TSH [Thyroid Stimulating Hormone] Stat Lab 03/06/24 18:30 Completed Trop I [Troponin I] Stat Lab 03/06/24 18:30 Completed UA [Urinalysis and Microscopic] Stat Lab 03/06/24 19:30 Completed US Testicular Stat Ultrasound 03/06/24 18:52 Completed MDM Narrative Medical Decision Narrative: In summary patient is a 23-year-old male who presents to the emergency department for evaluation of feelings of heaviness in the chest, numbness in the fingers, headache, anxiety, and left testicular pain. Patient is hemodynamically stable upon arrival, afebrile. Physical exam unremarkable. Differential diagnosis includes anxiety, withdrawal from cannabis, torsion testicle, PE,. Initial workup will be conducted with labs are within normal limit,Wells criteria low risk, PERC-score 1 with a negative D-dimer. Initial inventions include ultrasound of testicle negative for torsion, Vistaril given for anxiety. Initial workup reviewed by tx labs unremarkable ultrasound unremarkable urinalysis with micro hematuria follow-up with primary care. Upon repeat evaluation patient states his anxiety has improved with med. Given this patient appropriate for discharge at this time will discharge home with prescription of Vistaril for anxiety. Follow-up with primary care I informally interpreted patient's chest x-ray-no acute process Ultrasound of testicle negative for torsion quality assurance monitor body normal sinus at the rate of 84 <Laci Lopez MD - Last Filed: 03/06/24 20:26> Vital Signs Vital Signs: 03/06/24 18:32 Temperature 98.0 F Temperature Source Oral Pulse Rate [Radial] 86 Respiratory Rate 16 Blood Pressure [Right Arm] 144/95 H Blood Pressure Mean [Right Arm] 111 Blood Pressure Source [Right Arm] Automatic Cuff Blood Pressure Position [Right Arm] Sitting 02 Sat by Pulse Oximetry 100 Oxygen Delivery Method Room Air Lab Data Labs: Lab Results 03/06/24 18:30: WBC 6.4, RBC 5.56, Hgb 16.8, Hct 47.8, MCV 85.9, MCH 30.1, MCHC 35.1, RDW 13.0, Plt Count 268, MPV 7.5, Neut % (Auto) 73.2, Lymph % (Auto) 19.9, [place] % (Auto) 5.3, Eos % (Auto) 0.7, Baso % (Auto) 0.9, Neut # (Auto) 4.7, Lymph # (Auto) 1.3, [place] # (Auto) 0.3, Eos # (Auto) 0.1, Baso # (Auto) 0.1, D-Dimer 0.31, Sodium 142, Potassium 3.7, Chloride 102, Carbon Dioxide 27, Anion Gap 16.7 H, BUN 10, Creatinine 1.10, Estimated Creat Clear 86, Estimated GFR 85, Est GFR ( Amer) 102, Glucose 94, Calcium 9.8, Total Bilirubin 0.7, AST 26, ALT 18, Alkaline Phosphatase 72, Troponin I < 0.01, Total Protein 8.3 H, Albumin 5.2 H, Globulin 3.1, Albumin/Globulin Ratio 1.7, TSH 1.47, Thyroxine (T4) 11.1 H 03/06/24 19:30: Urine Color Dark yellow, Urine Appearance Slightly cloudy, Urine pH 6.0, Ur Specific [place] >= 1.030, Urine Protein Negative, Urine Glucose (UA) Negative, Urine Ketones Trace, Urine Blood 1+ A, Urine Nitrate Negative, Urine Bilirubin 1+ A, Urine Urobilinogen 0.2, Ur Leukocyte Esterase Negative, Urine RBC 5-10, Urine WBC None, Ur Squamous Epith Cells Occasional, Urine Bacteria None Response Orders (Tests/Meds): ED MEDICATIONS Discontinued Medications Generic Name Dose Route Start Last Admin Trade Name Tyler PRN Reason Stop Dose Admin Acetaminophen 1,000 mg 03/06/24 18:43 03/06/24 18:49 Acetaminophen 1,000mg/100ml Vial IV 03/06/24 18:44 1,000 mg ONCE ONE Administration Hydroxyzine Pamoate 50 mg 03/06/24 18:43 03/06/24 18:49 Hydroxyzine Pamoate 25mg Capsule PO 03/06/24 18:44 50 mg ONCE ONE Administration Ketorolac Tromethamine 30 mg 03/06/24 18:43 03/06/24 18:49 Ketorolac 30mg/Ml Vial IV 03/06/24 18:44 30 mg ONCE ONE Administration Ondansetron HCl 4 mg 03/06/24 18:43 03/06/24 18:50 Ondansetron 4mg Odt SL 03/06/24 18:44 4 mg ONCE ONE Administration ORDERS Category Date Time Status CXR --portable [XR chest portable] Stat Exams 03/06/24 18:43 Completed CBC w/Auto Diff [Complete Blood Count Auto Diff] Stat Lab 03/06/24 18:30 Completed CMP [Comprehensive Metabolic Panel] Stat Lab 03/06/24 18:30 Completed D-Dimer Stat Lab 03/06/24 18:30 Completed T4 (Thyroxine) Stat Lab 03/06/24 18:30 Completed TSH [Thyroid Stimulating Hormone] Stat Lab 03/06/24 18:30 Completed Trop I [Troponin I] Stat Lab 03/06/24 18:30 Completed UA [Urinalysis and Microscopic] Stat Lab 03/06/24 19:30 Completed US Testicular Stat Ultrasound 03/06/24 18:52 Completed ECG Data Tracing #1: ECG Narrative: Independently interpreted by me rate is 70, rhythm is irregular, sinus arrhythmia axis is normal, no ST elevation in anatomical contiguous leads, QTc 403. MDM Narrative Medical Decision Narrative: In summary patient is a 23-year-old male who presents to the emergency department for evaluation of feelings of heaviness in the chest, numbness in the fingers, headache, anxiety, and left testicular pain. Patient is hemodynamically stable upon arrival, afebrile. Physical exam unremarkable. Differential diagnosis includes anxiety, withdrawal from cannabis, torsion testicle, PE,. Initial workup will be conducted with labs are within normal limit,Wells criteria low risk and pulmonary embolism excluded with D-dimer. Initial inventions include ultrasound of testicle negative for torsion, Vistaril given for anxiety. Initial workup reviewed by me labs unremarkable ultrasound unremarkable urinalysis with micro hematuria follow-up with primary care. Upon repeat evaluation patient states his anxiety has improved with med. Given this patient appropriate for discharge at this time will discharge home with prescription of Vistaril for anxiety. Follow-up with primary care I informally interpreted patient's chest x-ray-no acute process Ultrasound of testicle negative for torsion quality assurance monitor body normal sinus at the rate of 84 I was consulted by the DEREK, and we discussed the complexity of the problems being addressed. I approved the treatment and management plan for this patient's care in the emergency department, thus performing a substantive portion of the medical decision making. Patient has cannabinoid withdrawal syndrome based on history physical exam and laboratory workup and does not have any evidence of emergent testicular pain that would warrant continued investigation after a negative ultrasound and urinalysis interpreted by me and not consistent with infection however there is microscopic hematuria for which she was instructed to follow-up with his PCP for repeat urinalysis Laci Lopez MD
[2024-03-06 19:03] LABS: Alanine Aminotransferase 18 U/L (12-78); Albumin Level 5.2 g/dl (3.5-5.0); Albumin/Globulin Ratio 1.7 (1.1-1.8); Alkaline Phosphatase 72 U/L (38-126); Anion Gap 16.7 mEq/L (5-15); Aspartate Amino Transferase 26 U/L (17-59); Bilirubin,Total 0.7 mg/dl (0.2-1.3); Blood Urea Nitrogen 10 mg/dl (9-20); Calcium 9.8 mg/dl (8.4-10.2); Carbon Dioxide 27 mmol/L (22.0-30.0); Chloride 102 mmol/L (98-107); Creatinine Clearance Estimated 86 mL/min (50-200); Estimated Glomerular Filt Rate 85 ml/min (>60); GFR (African American) 102 ML/MIN (>60); Globulin 3.1 g/dL (1.3-3.2); Glucose 94 mg/dl (74-100); Potassium 3.7 mmoL/L (3.5-5.1); Sodium 142 mmol/L (136-145); Total Protein,Serum 8.3 g/dl (6.3-8.2)
[2024-03-06 19:09] LABS: D-Dimer 0.31 ug/mL (0.0-0.5)
[2024-03-06 19:21] LABS: Troponin I < 0.01 ng/ml (0.00-0.034)
[2024-03-06 19:23] LABS: T4 (Thyroxine) 11.1 ug/dl (5.53-11.0)
[2024-03-06 19:33] LABS: Microscopic, Urine URINE MICROSCOPIC (MICROSCOPIC)
[2024-03-06 19:36] LABS: Thyroid Stimulating Hormone 1.47 uIU/mL (0.465-4.68)
[2024-03-06 19:50] LABS: Blood, Urine 1+ (Negative); Glucose,Urine (UA) Negative (Negative); Ketones,Urine TRACE (Negative); Leukocyte Esterase,Urine Negative (Negative); Nitrate,Urine Negative (Negative); Protein,Urine Negative (Negative); Specific Gravity, Urine >= 1.030 (1.005-1.030); Urobilinogen,Urine 0.2 EU/dl (0.2)
[2024-03-06 19:55] LABS: Appearance,Urine Slightly Cloudy (Clear); Bilirubin,Urine 1+ (Negative); Color,Urine Dark Yellow (Yellow)
[2024-03-06 20:01] LABS: Squamous Epithelial Cell,Urine Occasional #/hpf (0-5)
--- NOTE | 2024-03-06 20:04 | PC.NURSE ---
Pt back from ultrasound
[2024-03-06 20:27] VITALS: BP 116/69; PULSE 54; RESP 15; TEMP 36.9; O2SAT 97
== END 2024-03-06 20:30 | disposition home or self-care (01) ==
PROVIDERS: Emergency Provider Emergency Medicine
DX: R31.29 Other microscopic hematuria (principal); N50.82 Scrotal pain; F41.9 Anxiety disorder, unspecified; F12.93 Cannabis use, unspecified with withdrawal; R07.9 Chest pain, unspecified; R51.9 Headache, unspecified
CPT/HCPCS: 71045; 76870; 80050; 80053; 81001; 84436; 84443; 84484; 85025; 85378; 93005; 96374; 96375; 99284; J0131; J1885; Q0162

== ENCOUNTER 2024-03-21 09:02 | Emergency (ER) | payer OTHER, SELFPAY ==
--- NOTE | 2024-03-21 09:30 | EXP.UTC ---
Discharge Plan Disposition Patient Disposition: Home, Self-Care Condition: Good Prescriptions Prescriptions: New cephalexin 500 mg capsule 500 mg PO QID 10 Days Qty: 40 0RF mupirocin 2 % ointment 1 applic topical TID 7 Days Qty: 15 0RF No Action buspirone 10 mg tablet 10 mg PO BID Qty: 60 12RF Rx Instructions: Please take 1/2 tablet p.o. nightly x 5 to 7 days and then 1 tablet p.o. nightly x 5 to 7 days and then 1 tablet p.o. twice daily thereafter sodium,potassium,mag sulfates [Suprep Bowel Prep Kit] 17.5-3.13-1.6 gram recon soln See Rx Instructions PO .COMPLEX Qty: 354 0RF Rx Instructions: DILUTE; drink full amount early evening before AND next morning at least 2 hr before procedure; follow w 960 mL water PO hydroxyzine pamoate [Vistaril] 25 mg capsule 25 mg PO QID PRN (Reason: itching) Qty: 20 0RF Referrals Follow up/Referrals: Provider,Referral, [Primary Care Provider] - See instructions Alaina Martin DPM [Staff Physician] - See instructions Activity Restrictions/Add. Instructions Additional Instructions/Restrictions: Keep the wound clean and dry. Watch the wound for signs of infection, such as redness, swelling, drainage, fever. etc. Take tylenol or ibuprofen for pain. Follow up with your regular doctor. Follow up with Dr. Martin if you continue to have these symptoms. I put in the referal. Her office phone number will be on this paperwork. GO TO THE ER FOR ANY WORSENING SYMPTOMS OR CONCERNS. Clinical Impressions Clinical Impression: Cellulitis of left foot Instructions Patient Instructions: Cellulitis Print Language Print Language: Serbian Discharge ED Provider: Edmond Christianson [facility] General Stated complaint: spliter in left foot, possibly infected Time Seen by Provider: 03/21/24 09:30 Related Data Previous Rx's ?Medication ?Instructions ?Recorded hydroxyzine pamoate 25 mg capsule 25 mg PO QID PRN itching #20 caps 03/06/24 (Vistaril) buspirone 10 mg tablet 10 mg PO BID #60 tabs 03/09/24 sodium,potassium,mag sulfates 17.5 See Rx Instructions PO .COMPLEX 03/18/24 gram-3.13 gram-1.6 gram oral soln #354 mL (Suprep Bowel Prep Kit) cephalexin 500 mg capsule 500 mg PO QID 10 days #40 caps 03/21/24 mupirocin 2 % topical ointment 1 applic topical TID 7 days #15 03/21/24 grams Allergies Allergy/AdvReac Type Severity Reaction Status Date / Time No Known Allergies Allergy Verified 03/09/24 10:04 [facility] Disclaimer: The information contained in this section may have been updated after the patient was seen, as this information can be updated by other users. Social History (Updated 03/09/24 @ 10:06 by TORRI Campbell) Smoking Status: Former smoker tobacco type: smokeless tobacco alcohol intake: never current occupational status: unemployed Travel in the last 8 weeks: None Have you lived/traveled outside US in past 30 days?: No Contact w/someone who lives/traveled outside US past 30 days?: No Exposure to someone with infectious disease in past 14 days?: No Do you have a fever (greater than 100.4 F or 38 C)?: No Have you tested positive for COVID-19: No Exposed to someone with COVID-19 in past 14 days?: No Do you have a sore throat?: No Do you have a cough?: No Do you have any weakness?: No Do you have any diarrhea?: No Are you experiencing any unusual bleeding?: No Do you have any muscle aches/pain?: No Do you have any abdominal pain?: No Are you experiencing loss of taste or smell?: No ROS Obtained: Yes All systems reviewed & no additional complaints except as documented Constitutional Constitutional: Denies chills and Denies fever(s) Eyes Eyes: Denies eye discharge ENT Ears, Nose, Mouth, and Throat: Denies dizziness, Denies otalgia and Denies sore throat Cardiovascular Cardiovascular: Denies chest pain Respiratory Respiratory: Denies shortness of breath, Denies chest congestion, Denies cough, Denies stridor and Denies wheezing Gastrointestinal Gastrointestingal: Denies nausea or vomiting Musculoskeletal Musculoskeletal: Reports system reviewed and no additional complaints, except as documented and Denies arthralgias Integumentary/Breasts Skin/Breast: Denies rash Neurologic Neurologic: Denies dizziness and Denies paresthesias Allergic/Immunologic Allergic/Immunologic: Denies wheezing Physical Exam General General appearance: alert and in no apparent distress Head Head exam: atraumatic, normocephalic and normal inspection Eye Eye exam: Present normal appearance, PERRL and EOMI ENT ENT exam: Present normal exam, normal oropharynx, mucous membranes moist, TM's normal bilaterally and normal external ear exam Neck Neck exam: Present normal inspection, full ROM and trachea midline; Absent meningismus or lymphadenopathy Chest Chest inspection: Present normal inspection and symmetric chest wall rise; Absent tenderness Respiratory Respiratory exam: Present normal lung sounds bilaterally; Absent respiratory distress Cardiovascular Cardiovascular exam: Present regular rate and normal rhythm; Absent JVD Abdominal Exam Abdominal exam: Present soft and normal bowel sounds; Absent distention, tenderness or guarding Extremities Exam Extremities exam: Present normal inspection, full ROM and normal capillary refill; Absent calf tenderness Back Exam Back exam: Present normal inspection; Absent tenderness Neurological Exam Neurological exam: Present alert and oriented X3 Psychiatric Psychiatric exam: Present normal affect and normal mood Skin Skin exam: Present warm, dry, intact and normal color Lymphatic Lymphatic Findings: no adenopathy Medical Decision Making Medical Records Medical records reviewed: No I reviewed the patient's medical records. Screening: Per USPSTF and CDC recommendations, given the prevalence of disease in our region, it is our hospital?s policy to screen for HIV and viral Hepatitis for all patients aged 18 and over and those with ongoing risk factors. Edmund Inquiry Pt receiving controlled substance: No
[2024-03-21 09:33] VITALS: BP 122/78; PULSE 72; RESP 18; TEMP 36.6; O2SAT 99; BMI 17.8
[2024-03-21 09:52] VITALS: BP 122/78; PULSE 72; RESP 18; TEMP 36.6
== END 2024-03-21 09:56 | disposition home or self-care (01) ==
PROVIDERS: Emergency Provider Nurse Practitioner Family
DX: L03.116 Cellulitis of left lower limb (principal); S90.852A Superficial foreign body, left foot, initial encounter
CPT/HCPCS: 99212; G0381

== ENCOUNTER 2024-03-29 08:55 | Day surgery (SDC) | payer OTHER, SELFPAY ==
[2024-03-26 12:56] VITALS: BMI 17.8
[2024-03-29] MEDS: LACTATED RINGERS 1000ML 1,000 ML 25 ML IV (09:13)
[2024-03-29 09:16] VITALS: BP 130/69; PULSE 93; RESP 18; TEMP 36.3; O2SAT 99
[2024-03-29 09:29] VITALS: O2SAT 99
--- NOTE | 2024-03-29 09:30 | P.HP_ITS ---
History of Present Illness *Admission Date: 03/29/24 *Reason for visit:: Left upper quadrant abdominal pain and rectal bleeding *History of present illness: Mr. Linares is a 23-year-old gentleman who is here for diagnostic EGD and colonoscopy. The patient has had left upper quadrant abdominal pain and some chest pain (noncardiac). He also has bright red rectal bleeding and obstipation. The examination is deemed medically necessary for EGD/colonoscopy. The patient has been seen, interviewed and examined prior to the procedure by both myself and the anesthesia provider. [facility] Disclaimer: The information contained in this section may have been updated after the patient was seen, as this information can be updated by other users. Medical History Constipation Surgical History (Updated 03/29/24 @ 09:14 by Dylan Hanks RN) History of shoulder surgery Family History Other No significant family history Social History Smoking Status: Former smoker tobacco type: smokeless tobacco alcohol intake: never current occupational status: unemployed Travel in the last 8 weeks: None Have you lived/traveled outside [place] in past 30 days?: No Contact w/someone who lives/traveled outside [place] past 30 days?: No Exposure to someone with infectious disease in past 14 days?: No Do you have a fever (greater than 100.4 F or 38 C)?: No Have you tested positive for COVID-19: No Exposed to someone with COVID-19 in past 14 days?: No Do you have a sore throat?: No Do you have a cough?: No Do you have any weakness?: No Do you have any diarrhea?: No Are you experiencing any unusual bleeding?: No Do you have any muscle aches/pain?: No Do you have any abdominal pain?: No Are you experiencing loss of taste or smell?: No Review of Systems Review of Systems Review of systems (narrative): Negative *Cardiovascular Comments: Negative *Gastrointestinal Comments: Negative *Genitourinary Comments: Negative *Musculoskeletal Comments: Negative *Neurologic Comments: Negative Meds Home Medications and Allergies Home Medications ?Medication ?Instructions ?Recorded ?Confirmed ?Type hydroxyzine pamoate 25 mg capsule 25 mg PO QID PRN itching #20 caps 03/06/24 03/26/24 Rx (Vistaril) buspirone 10 mg tablet 10 mg PO BID #60 tabs 03/09/24 03/26/24 Rx cephalexin 500 mg capsule 500 mg PO QID 10 days #40 caps 03/21/24 03/26/24 Rx mupirocin 2 % topical ointment 1 applic topical TID 7 days #15 03/21/24 03/26/24 Rx grams New Prescriptions to Start Prescriptions: Allergies Allergy/AdvReac Type Severity Reaction Status Date / Time No Known Allergies Allergy Verified 03/09/24 10:04 Exam Data for Last 24 hours Vital signs and Labs for Last 24 Hours: Temp Pulse Resp BP Pulse Ox O2 Del Method 97.3 F L 93 H 18 130/69 99 Room Air 03/29/24 09:16 03/29/24 09:16 03/29/24 09:16 03/29/24 09:16 03/29/24 09:16 03/29/24 09:16 I & O for Last 24 hours: Intake & Output 03/26/24 03/27/24 03/28/24 03/29/24 23:59 23:59 23:59 23:59 Weight 128 lb *Routine HEENT Exam Head: Present normocephalic Eye: Present EOMI and PERRL ENT: Present mucous membranes moist *Routine Neck Exam Neck: Present supple *Routine Respiratory Exam Respiratory: Present CTA bilaterally *Routine Cardiovascular Exam Cardiovascular: Present RRR *Routine Abdominal Exam Abdominal: Present soft and normoactive bowel sounds; Absent tenderness *Routine Rectal Exam Rectal:: deferred *Routine Genitalia Exam Genitalia:: deferred *Routine Extremities Exam Extremities: Absent cyanosis, clubbing or edema *Routine Skin Exam Skin: Present warm; Absent rash *Routine Neurological Exam Neurological: Present alert and oriented X3 Assessment and Plan *Assessment and plan (1) Left upper quadrant abdominal pain: Status: Acute Category: Medical Code(s): R10.12 - Left upper quadrant pain (2) Obstipation: Status: Acute Category: Medical Code(s): K59.00 - Constipation, unspecified (3) BRBPR (bright red blood per rectum): Status: Acute Category: Medical Code(s): K62.5 - Hemorrhage of anus and rectum (4) Chest pain: Status: Acute Qualifiers: Chest pain type: unspecified Qualified Code(s): R07.9 - Chest pain, unspecified Category: Medical Code(s): R07.9 - Chest pain, unspecified (5) Splenic flexure syndrome: Status: Acute Category: Medical Code(s): K63.9 - Disease of intestine, unspecified (6) Incomplete defecation: Status: Acute Category: Medical Code(s): R15.0 - Incomplete defecation (7) Bleeding internal hemorrhoids: Status: Acute Category: Medical Code(s): K64.8 - Other hemorrhoids Plan A/P: 1. Left upper quadrant abdominal pain, noncardiac chest pain and bright red rectal bleeding with obstipation is the preprocedural diagnosis. The patient will be anesthetized/sedated using MAC sedation. The patient has been seen and examined. Cardiac and lung assessment prior to the examination is stable. Proceed with planned EGD and colonoscopy
--- NOTE | 2024-03-29 09:32 | HMH.PROCNOTE ---
[facility] Procedure Note Date: 03/29/24 Time: 09:40 Procedure Note:: Upper Endoscopy Procedure Report: Esophagogastroduodenoscopy with cold biopsies Endoscopost: Poncho Somers II, MD Referring Physician: None Date of Procedure: March 29, 2024 Equipment: Olympus GIF 190 standard upper endoscope Sedation: MAC sedation Indications: Mr. Linares is a 23-year-old gentleman with left upper quadrant abdominal pain, bright red rectal bleeding and obstipation/incomplete defecation. The patient recently went to the emergency department on March 06. He told ER physician Dr. Laci Lopez that he was having pain in the chest with tingling in his fingers (vagal reaction). The patient did have a CT scan of the abdomen and pelvis in February 2024. There was no acute intra-abdominal or intrapelvic abnormality but there was evidence of increased fecal burden/obstipation. He had a CAT scan also in April 2022 that had shown some hydronephrosis but that had resolved. The patient does report left upper quadrant abdominal pain that feels empty with tension and spasm. He does have a lot of anxiety. The patient reports 2-3 very small bowel movements daily with incomplete defecation and excessive wiping. The patient did have a moderate amount of bright red blood 1 time and there was no associated anorectal pain. The patient reports no use of NSAIDs. He reports no significant weight loss or family history of colitis, Crohn's or colon cancer. The patient has improved some with the buspirone. I had also recommended dietary measures and fiber bowel regimen (combined MiraLAX plus Konsyl). Procedure: Prior to the procedure, a history and physical exam was performed, and patient's medications and allergies were reviewed. The risks, benefits and alternatives of the sedation and procedure were discussed with the patient. All questions were answered and informed consent was obtained. The patient was brought to the procedure room. Patient identification and proposed procedure were verified by the physician and the nurse. The patient was placed in a left lateral decubitus position and the scope was passed under direct vision. Throughout the procedure, the patient's blood pressure, pulse, and oxygen saturations were monitored continuously. The upper GI endoscopy was accomplished without difficulty. The patient tolerated the procedure well. Findings: The scope was passed directly into the upper esophagus and advanced to the third portion of the duodenum. The post bulbar duodenum and duodenal bulb were normal with normal mucosa and conniventes. The ampulla was normal in appearance. The scope was withdrawn through a normal duodenal bulb and pylorus into the stomach. There was some very mild linear reactive gastropathy of the antrum. The body and fundus of the stomach were normal. Upon retroflexion there was a 2 to 3 cm hiatal hernia. Biopsies were taken from the antrum. The scope was then withdrawn into the esophagus. There was no evidence of reflux esophagitis. There was a single short tongue of salmon-colored mucosa that extended 1 cm above the GE junction that was biopsied. There were tertiary contractions and evidence of mild to moderate esophageal dysmotility. There was a larger and smaller proximal esophageal inlet patches x 2. The remainder of the esophageal mucosa was normal. Impression: 1. Proximal esophageal inlet patches 2. Nonerosive GERD with mild to moderate esophageal dysmotility and 2 to 3 cm hiatal hernia 3. Mild linear reactive gastropathy of antrum Plan: I will follow-up the biopsies. The patient does have functional GERD and dyspepsia. Most of his symptoms are related to and driven by lower intestinal gas pressure gradients/high gas pressure buildup resulting in backflow of bile and peptic fluid from the duodenum into the stomach (duodenal reflux). This gas production (carbon dioxide, hydrogen, methane, etc.) from the lower intestinal tract is the byproduct of colonic bacterial fermentation. This colonic fermentation occurs when there is more carbohydrate (dietary starches, sugars and high residue plant fiber) substrate that does not get digested (in the middle or small intestine) or occurs when there is colonic fecal buildup and colonic bacterial overgrowth. This indeed leads to bloating and the gas pressure buildup with gas pressure gradients that do drive backflow and dyspepsia. I would recommend that he continue the dietary measures (combined MiraLAX plus Konsyl) and buspirone. I will proceed with colonoscopy.
--- NOTE | 2024-03-29 09:40 | HMH.PROCNOTE ---
[facility] Procedure Note Date: 03/29/24 Time: 09:53 Procedure Note:: Colonoscopy Procedure Report: Colonoscopy with monopolar ablation/coagulation of internal hemorrhoids Endoscopist: Poncho Somers II, MD Referring physician: None Date of Procedure: March 29, 2024 Equipment: Olympus 190 variable stiffness pediatric colonoscope Sedation: MAC sedation Indication: Mr. Linares is a 23-year-old gentleman here for diagnostic colonoscopy. He has had left upper quadrant abdominal pain, bright red rectal bleeding and obstipation/incomplete defecation. The patient recently went to the emergency department on March 06. He told ER physician Dr. Laci Lopez that he was having pain in the chest with tingling in his fingers (vagal reaction). The patient did have a CT scan of the abdomen and pelvis in February 2024. There was no acute intra-abdominal or intrapelvic abnormality but there was evidence of increased fecal burden/obstipation. He had a CAT scan also in April 2022 that had shown some hydronephrosis but that had resolved. The patient does report left upper quadrant abdominal pain that feels empty with tension and spasm. He does have a lot of anxiety. The patient reports 2-3 very small bowel movements daily with incomplete defecation and excessive wiping. The patient did have a moderate amount of bright red blood 1 time and there was no associated anorectal pain. The patient reports no use of NSAIDs. He reports no significant weight loss or family history of colitis, Crohn's or colon cancer. The patient has improved with buspirone. Procedure: Prior to the procedure, a history and physical exam was performed, and patient's medications and allergies were reviewed. The risks, benefits and alternatives of the sedation and procedure were discussed with the patient. All questions were answered and informed consent was obtained. The patient was brought to the procedure room. Patient identification and proposed procedure were verified by the physician and the nurse. The patient was placed in a left lateral decubitus position and the scope was passed under direct vision. Throughout the procedure, the patient's blood pressure, pulse, and oxygen saturations were monitored continuously. The colonoscopy was accomplished without difficulty. The patient tolerated the procedure well. Findings: On digital rectal examination there was normal rectal tone. There were no external hemorrhoids. There was no anal fissure or fistula. The colonoscope was introduced through the anal canal to the rectum and advanced to the cecum. The ileocecal valve and appendiceal orifice were identified. The scope was advanced a short distance into the ileum which appeared grossly normal. The scope was then withdrawn into the colon. The cecum, ascending, transverse, descending, sigmoid and rectum were grossly normal. There were no mucosal abnormalities identified. Upon retroflexion within the rectum there were grade 1-2 internal hemorrhoids.these 3 columns of hemorrhoids were coagulated/ablated using monopolar coagulation to destruction. The preparation was excellent throughout with [place] Preparation Score of 9. The cecal time was 10 minutes. Impression: 1. Normal colonoscopy with intubation of the terminal ileum 2. Grade 1-2 internal hemorrhoids status post monopolar ablation/coagulation Plan: I do feel that the patient has had splenic flexure syndrome causing the left upper quadrant abdominal pain. This is related to his obstipation. The bleeding occurred because of his internal hemorrhoids. Splenic flexure syndrome is a term used to describe bloating, muscle spasms of the colon and upper abdominal pain on the left side and is thought to be caused by trapped gas and stool at the splenic flexure/curvature of the colon which is in the left upper colon. The pain can be excruciating and debilitating. I would recommend that he continue the dietary measures, fiber bowel regimen (combined MiraLAX plus Konsyl daily) and buspirone.
[2024-03-29 09:56] VITALS: BP 102/57; PULSE 86; RESP 15; TEMP 36.3; O2SAT 96
[2024-03-29 10:06] VITALS: BP 93/53; PULSE 62; RESP 15; O2SAT 96
[2024-03-29 10:16] VITALS: BP 98/52; PULSE 62; RESP 17; O2SAT 96
--- NOTE | 2024-03-29 10:22 | P.PNANES_ITS ---
[facility] Disclaimer: The information contained in this section may have been updated after the patient was seen, as this information can be updated by other users. Medical History Constipation Surgical History (Updated 03/29/24 @ 09:14 by Dylan Hanks RN) History of shoulder surgery Family History Other No significant family history Social History Smoking Status: Former smoker tobacco type: smokeless tobacco alcohol intake: never substance use type: denies use current occupational status: unemployed Travel in the last 8 weeks: None [facility] Anesthesia Checklist Patient Identification Patient Identification: Arm Band Structural Data Admitted From: Home Planned Operative Procedure/s: EGD/Colonoscopy Consent for Planned Operative Procedure(s) Verified: Yes Verified Documents: Surgical Consent and History and Physical NPO Status Verified Time NPO: 00:00 Additional verifications Anesthesia Reactions: No Airway Assessment Mallampati Score:: Class II C-Spine Mobility Assessed: Yes TMJ Mobility Assessed: Yes Dentition: Good Dentition Neurological Assessment Level of Consciousness: Awake, Alert and Appropriate Anesthesia Plan Anesthesia Risk discussed: Yes Anesthesia Plan: Verified ASA Class: II Anesthesia Type: MAC
[2024-03-29 10:26] VITALS: BP 99/53; PULSE 59; RESP 17; TEMP 36.6; O2SAT 97
== END 2024-03-29 10:37 | disposition home or self-care (01) ==
PROVIDERS: Visit Provider Internal Medicine Gastroenterology
PROC: 0DJ08ZZ Inspection of Upper Intestinal Tract, Via Natural or Artificial Opening Endoscopic (ICD-10-PCS; CPT 45378; principal; 2024-03-29 11:00)
DX: R10.12 Left upper quadrant pain (principal); K59.00 Constipation, unspecified; K62.5 Hemorrhage of anus and rectum; R07.9 Chest pain, unspecified; K63.9 Disease of intestine, unspecified; K64.8 Other hemorrhoids; K31.9 Disease of stomach and duodenum, unspecified; K44.9 Diaphragmatic hernia without obstruction or gangrene; K22.4 Dyskinesia of esophagus; K21.9 Gastro-esophageal reflux disease without esophagitis
CPT/HCPCS: 43239; 45388; J7120

== ENCOUNTER 2024-08-19 07:56 | Emergency (ER) | payer OTHER, SELFPAY ==
[2024-08-19 08:05] VITALS: BP 141/83; PULSE 87; RESP 16; TEMP 36.6; O2SAT 100; BMI 22.3
[2024-08-19 08:08] LABS: Microscopic, Urine URINE MICROSCOPIC (MICROSCOPIC)
[2024-08-19 08:17] LABS: Appearance,Urine CLEAR (Clear); Blood, Urine Negative (Negative); Color,Urine YELLOW (Yellow); Glucose,Urine (UA) Negative (Negative); Ketones,Urine 3+ (Negative); Leukocyte Esterase,Urine Negative (Negative); Nitrate,Urine Negative (Negative); Protein,Urine TRACE (Negative)
[2024-08-19 08:24] LABS: Bilirubin,Urine Negative (Negative)
[2024-08-19 08:28] LABS: Basophils % 0.5 % (0.1-2.0); Eosinophils # 0.1 Kmm3 (0.0-0.4); Eosinophils % 0.7 % (0.1-12.0); Hematocrit 45.3 % (42.0-52.0); Hemoglobin 16.1 g/dL (14.1-18.0); Immature Granulocytes # 0.02 10^3uL; Immature Granulocytes % 0.3 %; Lymphocytes # 1.4 K/mm3 (0.7-4.5); Lymphocytes % 18.4 % (10-50); Mean Corpuscular HGB Conc 35.5 g/dL (31.8-35.4); Mean Corpuscular Hemoglobin 29.6 pg (27.0-31.2); Mean Corpuscular Volume 83.3 fl (80-94); Mean Platelet Volume 9.6 fl (7.4-10.4); Monocytes # 0.4 K/mm3 (0.1-1.0); Monocytes % 5.5 % (1.7-9.3); Neutrophils # 5.7 K/mm3 (1.8-7.8); Neutrophils % 74.6 % (37.0-80.0); Nucleated Red Blood Cells # 0 10^3/uL; Nucleated Red Blood Cells % 0 %; Platelet Count 249 K/mm3 (142-424); Red Blood Count 5.44 M/mm3 (4.60-6.20); Red Cell Distribution Width 11.9 % (11.5-17.5); White Blood Count 7.7 K/mm3 (4.8-10.8)
[2024-08-19] MEDS: LACTATED RINGERS 1000ML 1,000 ML 999 ML IV (08:30)
[2024-08-19] MEDS: METOCLOPRAMIDE HCL 10MG/2ML VIAL 10 MG IVP (08:31)
[2024-08-19 08:39] LABS: Bacteria,Urine Trace /lpf; Mucus,Urine Trace /lpf; Squamous Epithelial Cell,Urine Occasional #/hpf (0-5); WBC,Urine Occasional #/hpf (0-3)
[2024-08-19 08:39] LABS: Alanine Aminotransferase 31 U/L (12-78); Albumin Level 5.4 g/dl (3.5-5.0); Albumin/Globulin Ratio 1.9 (1.1-1.8); Alkaline Phosphatase 92 U/L (38-126); Anion Gap 15.6 mEq/L (5-15); Aspartate Amino Transferase 33 U/L (17-59); Blood Urea Nitrogen 17 mg/dl (9-20); Calcium 9.8 mg/dl (8.4-10.2); Carbon Dioxide 20 mmol/L (22.0-30.0); Chloride 106 mmol/L (98-107); Creatinine Clearance Estimated 109 mL/min (50-200); Estimated Glomerular Filt Rate 85 ml/min (>60); GFR (African American) 102 ML/MIN (>60); Globulin 2.8 g/dL (1.3-3.2); Glucose 101 mg/dl (74-100); Potassium 3.6 mmoL/L (3.5-5.1); Sodium 138 mmol/L (136-145); Total Protein,Serum 8.2 g/dl (6.3-8.2)
--- NOTE | 2024-08-19 08:53 | ED_ITS ---
Discharge Plan Disposition Patient Disposition: Home, Self-Care Prescriptions Prescriptions: New metoclopramide HCl [Reglan] 10 mg tablet 10 mg PO Q6H PRN (Reason: nausea and vomiting) Qty: 30 0RF No Action buspirone 10 mg tablet 10 mg PO BID Qty: 60 12RF Rx Instructions: Please take 1/2 tablet p.o. nightly x 5 to 7 days and then 1 tablet p.o. nightly x 5 to 7 days and then 1 tablet p.o. twice daily thereafter hydroxyzine pamoate [Vistaril] 25 mg capsule 25 mg PO QID PRN (Reason: itching) Qty: 20 0RF cephalexin 500 mg capsule 500 mg PO QID 10 Days Qty: 40 0RF mupirocin 2 % ointment 1 applic topical TID 7 Days Qty: 15 0RF Referrals Follow up/Referrals: Provider,Referral, MD [Primary Care Provider] - See instructions Activity Restrictions/Add. Instructions Additional Instructions/Restrictions: Take Reglan every 6 hours. Set an alarm for the first 24 hours to make sure you take it so you do not get behind on vomiting again. Call your family doctor to establish care for this visit to the emergency department and schedule follow-up within 48 hours to ensure improvement. If you have any worsening of your condition or any other concerning signs or symptoms, return to the emergency department or your primary care doctor for further evaluation. Discontinue using THC as this is likely contributing to your symptoms. Clinical Impressions Clinical Impression: Vomiting Instructions Patient Instructions: DI for Acute Abdominal Pain Print Language Print Language: Divehi Discharge ED Provider: Robel Wong General Adult HPI General Chief complaint: Abdominal Pain Stated complaint: Light-headed, numbness in both hands, vomiting Time Seen by Provider: 08/19/24 08:08 Mode of Arrival: Ambulatory Source of Information: Patient Description of Symptoms (Recalled from ER Triage Doc. by RN): patient states he has not felt good since friday he is lightheaded and is having epigastric pain that feels like pressure with vomiting History of Present Illness HPI narrative: Please note that above description of symptoms, in this electronic medical record under categorization of recalled from ER triage doctor by RN are reflective of an initial nursing assessment, however, is not reflective of my full history and physical exam that was personally taken and clarified. Consequentially, this preceding description of symptoms, which may include the patient's categorized chief complaint in the EMR, do not reflect my personal clinical impression, and the ultimate description of history of present illness and patient stated complaints should be deferred to this section of the note. Unless stated otherwise or congruent with this section of the note, additional signs, symptoms, or incongruence should be interpreted as inaccurate with my clinical impression. Related Data Previous Rx's ?Medication ?Instructions ?Recorded hydroxyzine pamoate 25 mg capsule 25 mg PO QID PRN itching #20 caps 03/06/24 (Vistaril) buspirone 10 mg tablet 10 mg PO BID #60 tabs 03/09/24 cephalexin 500 mg capsule 500 mg PO QID 10 days #40 caps 03/21/24 mupirocin 2 % topical ointment 1 applic topical TID 7 days #15 03/21/24 grams metoclopramide HCl 10 mg tablet 10 mg PO Q6H PRN nausea and 08/19/24 (Reglan) vomiting #30 tabs Allergies Allergy/AdvReac Type Severity Reaction Status Date / Time No Known Allergies Allergy Verified 03/09/24 10:04 [facility] Disclaimer: The information contained in this section may have been updated after the patient was seen, as this information can be updated by other users. Medical History (Updated 08/19/24 @ 09:33 by Robel Wong MD) Constipation Surgical History (Updated 03/29/24 @ 09:14 by Dylan Hanks RN) History of shoulder surgery Family History Other No significant family history Social History (Updated 03/29/24 @ 10:23 by Lyndon Chaidez CRNA) Smoking Status: Current every day smoker tobacco type: smokeless tobacco alcohol intake: never substance use type: denies use current occupational status: unemployed Travel in the last 8 weeks?: None Have you lived/traveled outside [place] in past 30 days?: No Contact w/someone who lives/traveled outside US past 30 days?: No Exposure to someone with infectious disease in past 14 days?: No Do you have a fever (greater than 100.4 F or 38 C)?: No Have you tested positive for COVID-19?: No Exposed to someone with COVID-19 in past 14 days?: No Do you have a sore throat?: No Do you have a cough?: No Do you have any weakness?: Yes Do you have any diarrhea?: No Are you experiencing any unusual bleeding?: No Do you have any muscle aches/pain?: Yes Do you have any abdominal pain?: Yes Are you experiencing loss of taste or smell?: No ROS Obtained: Yes All systems reviewed & no additional complaints except as documented Physical Exam General General appearance: alert Head Head exam: atraumatic and normocephalic Eye Eye exam: Present normal appearance, PERRL and EOMI Neck Neck exam: Present normal inspection, full ROM and trachea midline Respiratory Respiratory exam: Absent respiratory distress, wheezes, stridor, accessory muscle use or prolonged expiratory phase Cardiovascular Cardiovascular exam: Present other (Pulses equal symmetric in upper and lower extremities) Abdominal Exam Abdominal exam: Present soft and tenderness (Subjective epigastric tenderness, not elicited on my exam); Absent distention, guarding, rebound, rigidity or pulsatile mass Extremities Exam Extremities exam: Absent edema Neurological Exam Neurological exam: Present alert, oriented X3 and CN II-XII intact; Absent motor sensory deficit Skin Skin exam: Present warm and dry; Absent diaphoresis or erythema Medical Decision Making Medical Records Medical records reviewed: Yes I reviewed the patient's medical records. Screening: Per USPSTF and CDC recommendations, given the prevalence of disease in our region, it is our hospital?s policy to screen for HIV and viral Hepatitis for all patients aged 18 and over and those with ongoing risk factors. Edmund Inquiry Pt receiving controlled substance: No Edmund was queried for this patient: No Vital Signs: 08/19/24 08:05 Temperature 97.8 F Temperature Source Oral Pulse Rate [Right Radial] 87 Respiratory Rate 16 Blood Pressure [Right Arm] 141/83 H Blood Pressure Mean [Right Arm] 102 Blood Pressure Source [Right Arm] Automatic Cuff Blood Pressure Position [Right Arm] Sitting 02 Sat by Pulse Oximetry 100 Oxygen Delivery Method Room Air Lab Data Lab Results 08/19/24 08:04: Urine Color Yellow, Urine Appearance Clear, Urine pH 8.0, Ur Specific [place] 1.020, Urine Protein Trace, Urine Glucose (UA) Negative, Urine Ketones 3+, Urine Blood Negative, Urine Nitrate Negative, Urine Bilirubin Negative, Urine Urobilinogen 2.0, Ur Leukocyte Esterase Negative, Urine RBC None, Urine WBC Occasional, Ur Squamous Epith Cells Occasional, Urine Bacteria Trace, Urine Mucus Trace 08/19/24 08:05: WBC 7.7, RBC 5.44, Hgb 16.1, Hct 45.3, MCV 83.3, MCH 29.6, MCHC 35.5 H, RDW 11.9, Plt Count 249, MPV 9.6, Neut % (Auto) 74.6, Lymph % (Auto) 18.4, [place] % (Auto) 5.5, Eos % (Auto) 0.7, Baso % (Auto) 0.5, Neut # (Auto) 5.7, Lymph # (Auto) 1.4, [place] # (Auto) 0.4, Eos # (Auto) 0.1, Baso # (Auto) 0.0, Sodium 138, Potassium 3.6, Chloride 106, Carbon Dioxide 20 L, Anion Gap 15.6 H, BUN 17, Creatinine 1.10, Estimated Creat Clear 109, Estimated GFR 85, Est GFR ( Amer) 102, Glucose 101 H, Calcium 9.8, Magnesium 2.0, Total Bilirubin 1.0, AST 33, ALT 31, Alkaline Phosphatase 92, Total Protein 8.2, Albumin 5.4 H, Globulin 2.8, Albumin/Globulin Ratio 1.9 H, Lipase 41 08/19/24 08:05 08/19/24 08:05 Orders (Tests/Meds): ED MEDICATIONS Discontinued Medications Generic Name Dose Route Start Last Admin Trade Name Freq PRN Reason Stop Dose Admin Diphenhydramine HCl 25 mg 08/19/24 08:52 08/19/24 08:56 Diphenhydramine 50mg/Ml Vial IV 08/19/24 08:53 25 mg ONCE ONE Administration Lactated Ringer's 1,000 mls @ 999 mls/hr 08/19/24 08:21 08/19/24 08:30 Lactated Ringer's 1000 Ml Bag IV 08/19/24 09:21 999 mls/hr .Q1H1M ONE Administration Metoclopramide HCl 10 mg 08/19/24 08:21 08/19/24 08:31 Metoclopramide Hcl 10mg/2ml Vial IVP 08/19/24 08:22 10 mg ONCE ONE Administration Metoclopramide HCl 10 mg 08/19/24 09:28 08/19/24 09:31 Metoclopramide 10mg Tablet PO 08/19/24 09:29 10 mg ONCE ONE Administration ORDERS Category Date Time Status CBC w/Auto Diff [Complete Blood Count Auto Diff] Stat Lab 08/19/24 08:05 Completed CMP [Comprehensive Metabolic Panel] Stat Lab 08/19/24 08:05 Completed Lipase Stat Lab 08/19/24 08:05 Completed Magnesium Stat Lab 08/19/24 08:05 Completed UA [Urinalysis and Microscopic] Stat Lab 08/19/24 08:04 Completed Medical Decision Narrative: 23-year-old male presenting with vomiting and abdominal pain. He states has been going on for couple days at this point. He states that he has previously had hyperemesis secondary to cannabis but has not used THC in a long while. States that instead of using the plant, he started vaping with concentrated THC, this was about a week ago. Since that time he started developing this vomiting. Does have epigastric abdominal pain, ability to tolerate some p.o. intake, but nothing meaningful. No diarrhea, blood in his vomit, bile in his vomit. States he is mild epigastric abdominal burning but does not radiate. Worse with vomiting. No fevers or chills. Last bowel movement yesterday normal for him. Still passing gas. History was obtained via conversation with patient. On arrival, patient hemodynamically stable, alert, oriented x4, appropriate, GCS 15, moving all extremities spontaneously, pupils equal and reactive to light. Full physical exam performed and significant for well-appearing male who was a little uncomfortable, not actively retching. Abdomen is soft, nontender, nondistended on my exam, although he does have some subjective tenderness is not worse with my application of pressure. Lungs are clear, cardiac exam without murmurs gallops or rubs, he is nontachycardic. Mucous membranes are moist. Differential includes cannabis hyperemesis, gastritis, peptic ulcer disease, pancreatitis, among others. I do not feel this is consistent with a surgical emergency because such benign exam and normal vital signs. Patient placed on continuous cardiac monitoring and continuous pulse ox with initial blood pressure 141/83, heart rate 87, saturation 100% on room air. Patient was given Reglan and fluids for symptomatic management and correction of underlying abnormalities. On reevaluation, patient's nausea has resolved, but patient states that he is feeling hot, anxious, intermittently diaphoretic. It feels is likely secondary to Reglan since it only started after receiving the IV Reglan. IV Benadryl was administered. Workup independently interpreted and significant for nonactionable CBC or chemistry. LFTs normal, urinalysis without concern for UTI. He does have ketones in his urine consistent with ketogenic state likely due to vomiting. CT of the abdomen and pelvis was considered, but deemed unnecessary due to normal vital signs, normal physical exam, largely nonactionable workup with significant improvement with Reglan. On reevaluation, patient states he is feeling much better and currently completely asymptomatic. Oral Reglan was given to initiate transition to oral meds at home. Given patient presentation, workup, history, this most likely represents cannabis hyperemesis versus gastritis. Because patient at baseline without signs or symptoms of clinical decompensation, deemed appropriate for discharge. Results were relayed to patient who voiced understanding and were agreeable to outpatient management and follow up. I discussed my clinical impression with patient and answered all questions. At this time, the evidence for any other entities in the differential is insufficient to warrant any further testing or ED observation. This was explained as well. Advisory was given that persistent or worsening symptoms require further evaluation. I confirmed the understanding of this discussion. Outside Event Sales Specialist disclaimer Much of this encounter note is an electronic edge banding machine offbearer spoken language to printed text. Electronic edge banding machine offbearer of the spoken language may permit errors. Although I have reviewed the note, some errors may still exist. Critical Care Critical Care Time Critical Care Time: No
[2024-08-19] MEDS: diphenhydrAMINE 50MG/ML VIAL 25 MG IV (08:56)
[2024-08-19 09:20] VITALS: BP 114/61; PULSE 53; O2SAT 100
[2024-08-19 09:26] LABS: Lipase 41 U/L (23-300)
[2024-08-19] MEDS: METOCLOPRAMIDE 10MG TABLET 10 MG PO (09:31)
[2024-08-19 09:34] VITALS: BP 115/55; PULSE 64; O2SAT 100
[2024-08-19 09:46] VITALS: BP 115/55; PULSE 66; RESP 15; TEMP 36.6; O2SAT 99
== END 2024-08-19 09:47 | disposition home or self-care (01) ==
PROVIDERS: Emergency Provider Emergency Medicine
DX: R10.816 Epigastric abdominal tenderness (principal); R11.2 Nausea with vomiting, unspecified; R42 Dizziness and giddiness
CPT/HCPCS: 80053; 81001; 83690; 83735; 85025; 96361; 96374; 96375; 99284; J1200; J2765; J7120

== ENCOUNTER 2024-11-12 17:23 | Emergency (ER) | payer OTHER, SELFPAY ==
[2024-11-12] VITALS (9 sets, daily range): BP systolic 105–141; BP diastolic 51–75; PULSE 52–66; RESP 16–18; TEMP 36.7–37.1; O2SAT 96–100; BMI 20.2
--- NOTE | 2024-11-12 17:26 | ECG_ITS ---
APPROVED REPORT Exam: Resting ECG HR:63 bpm ECG Measurements Heart Rate 63 AXES ID 132 P 64 QRSd 111 QRS 67 QT 399 T 55 QTc 406 Conclusion Normal sinus rhythm at [address] or T wave changes concerning for ischemia Electronically signed by : Urmila Jacobo, 11/13/2024 02:17:00
--- OUTSIDE RECORDS SUMMARY | 2024-11-12 17:40 | XMS_ITS | Clinical Summary ---
Author Organization [facility] Address [address] [id number] Care Team Providers Care Telephone Operator Name Role Phone Clarissa Chavez DENIA Primary Care Provider [phone] Allergies No known active allergies Medications No known medications Family History Medical History Relation Name Comments Cardiac disorder Other 1 Diabetes Other 2 Diabetes Other 3 Hypertension Other 4 Hypertension Other 5 Conversions - Other Other 6 Patient denies medical problems Relation Name Status Comments Other 1 Other 2 Other 3 Other 4 Other 5 Other 6 Social History Tobacco Use Types Packs/Day Years Used Date Smoking Tobacco: Never Smokeless Tobacco: Never PHQ-2 Answer Date Recorded Patient Health Questionnaire-2 Score 0 01/18/2021 Sex and Gender Information Value Date Recorded Sex Assigned at Not on file Legal Sex Male 7:27 PM EDT Gender Identity Not on file Sexual Orientation Not on file Last Filed Vital Signs Vital Sign Reading Time Taken Comments Blood Pressure 121/70 05/01/2022 11:48 AM EST Pulse 55 05/01/2022 11:48 AM EST Temperature 36.6 C (97.9 F) 05/01/2022 11:48 AM EST Respiratory Rate 17 05/01/2022 11:48 AM EST Oxygen Saturation 98% 05/01/2022 11:48 AM EST RA Inhaled Oxygen Concentration - - Weight 68.9 kg (152 lb) 03/08/2021 9:14 AM EST Height 180.3 cm (5' 11 ) 03/08/2021 9:14 AM EST Body Mass Index 21.2 03/08/2021 9:14 AM EST Plan of Treatment Health Maintenance Due Date Last Done Comments [facility]-Depression Screening 2002 [facility]-Infant/Child/Adol SDOH Screenings 2002 HPV Vaccines (1 - Male 3-dose series) 2017 [facility]- SDOH Screenings 2020 [facility]-Adult SDOH Screenings 2020 [id number]-[id number]-14 Vaccine (1 - season) 2023 [facility]-Influenza Vaccine (#1) 2024 [facility]-DTaP,Tdap,and Td Vaccines (4 - Td or Tdap) 11/18/2027 11/17/2017, 01/23/2005, 03/20/2004 [facility]-Zoster Vaccines (1 of 2) 2052 03/10/2009, 03/20/2004 [facility]-Hepatitis B Vaccines Completed 005, 03/20/2004, 2002 [facility]-HIB Vaccines Completed 04/26/2005, , 03/20/2004 [facility]-IPV Vaccines Completed 03/10/2009, , 01/23/2005, Additional history exists [facility]-Varicella Vaccines Completed 03/10/2009, 2003 [facility]-Hepatitis A Vaccines Completed 12/03/2019, 11/05 [facility]-Pneumococcal Vaccine: Pediatrics (0 to 5 Years) and At-Risk Patients (6 to 49 Years) Aged Out No longer eligible based on patient's age to complete this topic [facility]-Rotavirus Vaccines Aged Out No lo nger eligible based on patient's age to complete this topic Care Teams Telephone Operator Relationship Specialty Start Date End Date Clarissa Chavez APRN [address] [place] [address] PCP - General 08/18/20
--- NOTE | 2024-11-12 18:06 | XR_ITS ---
PROCEDURE INFORMATION: Exam: XR Chest Exam date and time: 11/12/2024 6:12 PM Age: 23 years old Clinical indication: Other: Upper abd. Pain TECHNIQUE: Imaging protocol: Radiologic exam of the chest. Views: 1 view. Total images: 1 COMPARISON: CR XR CHEST PORTABLE 03/06/2024 7:05 PM FINDINGS: Lungs: Unremarkable. No consolidation. No pulmonary vascular congestion or edema. Pleural spaces: Unremarkable. No pleural effusion. No pneumothorax. Heart/Mediastinum: Unremarkable. No cardiomegaly. No mediastinal widening or hilar enlargement. Bones/joints: Unremarkable. IMPRESSION: No radiographically acute cardiopulmonary process.
[2024-11-12 18:10] LABS: Hematocrit 43.3 % (42.0-52.0); Hemoglobin 15.4 g/dL (14.1-18.0); Immature Granulocytes % 0.2 %; Mean Corpuscular HGB Conc 35.6 g/dL (31.8-35.4); Mean Corpuscular Hemoglobin 30.7 pg (27.0-31.2); Mean Corpuscular Volume 86.4 fl (80-94); Nucleated Red Blood Cells % 0 %; Platelet Count 240 K/mm3 (142-424); Red Blood Count 5.01 M/mm3 (4.60-6.20); Red Cell Distribution Width-SD 38.1 fL; White Blood Count 5.9 K/mm3 (4.8-10.8)
--- NOTE | 2024-11-12 18:19 | [facility].EDGENADL ---
Discharge Plan Disposition Patient Disposition: Home, Self-Care Condition: Good Prescriptions Prescriptions: New dicyclomine 20 mg tablet 20 mg PO BID 5 Days Qty: 10 0RF ondansetron HCl 4 mg tablet 4 mg PO Q8H PRN (Reason: nausea and vomiting) 1 Days Qty: 10 0RF No Action buspirone 10 mg tablet 10 mg PO BID Qty: 60 12RF Rx Instructions: Please take 1/2 tablet p.o. nightly x 5 to 7 days and then 1 tablet p.o. nightly x 5 to 7 days and then 1 tablet p.o. twice daily thereafter hydroxyzine pamoate [Vistaril] 25 mg capsule 25 mg PO QID PRN (Reason: itching) Qty: 20 0RF cephalexin 500 mg capsule 500 mg PO QID 10 Days Qty: 40 0RF mupirocin 2 % ointment 1 applic topical TID 7 Days Qty: 15 0RF metoclopramide HCl [Reglan] 10 mg tablet 10 mg PO Q6H PRN (Reason: nausea and vomiting) Qty: 30 0RF Referrals Follow up/Referrals: Provider,Referral, MD [Primary Care Provider, Medical] - See instructions Activity Restrictions/Add. Instructions Additional Instructions/Restrictions: I have sent you with 2 medications which you can take daily in addition to Tylenol Motrin for your symptoms. Return to the emergency department for any acute or worsening symptoms. Clinical Impressions Clinical Impression: Abdominal pain Instructions Patient Instructions: DI for Acute Abdominal Pain Print Language Print Language: Bulgarian Discharge ED Provider: Urmila Jacobo Adult HPI General Chief complaint: Abdominal Pain Stated complaint: chest pain Time Seen by Provider: 11/12/24 17:52 Mode of Arrival: Ambulatory Source of Information: Patient Description of Symptoms (Recalled from ER Triage Doc. by RN): abd and throat pain started friday. had dental surgery couple weeks ago. today pain became worse in abdomen and spasms in chest noted. History of Present Illness HPI narrative: Patient is an otherwise healthy 23-year-old male presents to the emergency department chest pain and abdominal pain. Patient's abdominal pain is in his lower abdomen. Nonradiating. Patient denies any pain in his back. Patient denies any urinary symptoms. Patient denies any shortness of breath does report some intermittent pain. This chest. Patient denies any recent fevers. Patient denies any upper respiratory symptoms. Patient reports recent dental surgery but denies any other recent surgeries. Patient also reports a sore throat. Related Data Previous Rx's ?Medication ?Instructions ?Recorded hydroxyzine pamoate 25 mg capsule 25 mg PO QID PRN itching #20 caps 03/06/24 (Vistaril) buspirone 10 mg tablet 10 mg PO BID #60 tabs 03/09/24 cephalexin 500 mg capsule 500 mg PO QID 10 days #40 caps 03/21/24 mupirocin 2 % topical ointment 1 applic topical TID 7 days #15 03/21/24 grams metoclopramide HCl 10 mg tablet 10 mg PO Q6H PRN nausea and 08/19/24 (Reglan) vomiting #30 tabs dicyclomine 20 mg tablet 20 mg PO BID 5 days #10 tabs 11/12/24 ondansetron HCl 4 mg tablet 4 mg PO Q8H PRN nausea and 11/12/24 vomiting 24 hours #10 tabs Allergies Allergy/AdvReac Type Severity Reaction Status Date / Time No Known Allergies Allergy Verified 03/09/24 10:04 [facility] Disclaimer: The information contained in this section may have been updated after the patient was seen, as this information can be updated by other users. Medical History (Updated 11/12/24 @ 20:24 by Urmila Jacobo DO) Constipation Surgical History (Updated 03/29/24 @ 09:14 by Dylan Hanks RN) History of shoulder surgery Family History Other No significant family history Social History (Updated 03/29/24 @ 10:23 by Lyndon Chaidez CRNA) Smoking Status: Former smoker tobacco type: smokeless tobacco alcohol intake: never substance use type: denies use current occupational status: unemployed Travel in the last 8 weeks?: None Have you lived/traveled outside [place] in past 30 days?: No Contact w/someone who lives/traveled outside [place] past 30 days?: No Exposure to someone with infectious disease in past 14 days?: No Do you have a fever (greater than 100.4 F or 38 C)?: No Have you tested positive for COVID-19?: No Exposed to someone with COVID-19 in past 14 days?: No Do you have a sore throat?: No Do you have a cough?: No Do you have any weakness?: No Do you have any diarrhea?: No Are you experiencing any unusual bleeding?: No Do you have any muscle aches/pain?: No Do you have any abdominal pain?: No Are you experiencing loss of taste or smell?: No ROS Obtained: Yes All systems reviewed & no additional complaints except as documented and Yes Systems reviewed as appropriate & no additional complaints except as documented Physical Exam General General appearance: alert and in no apparent distress Head Head exam: atraumatic, normocephalic and normal inspection Eye Eye exam: Present normal appearance, PERRL and EOMI; Absent scleral icterus ENT ENT exam: Present normal exam and normal external ear exam Neck Neck exam: Present normal inspection and full ROM Chest Chest inspection: Present normal inspection and symmetric chest wall rise Respiratory Respiratory exam: Present normal lung sounds bilaterally; Absent respiratory distress or wheezes Cardiovascular Cardiovascular exam: Present regular rate, normal rhythm and normal heart sounds Abdominal Exam Abdominal exam: Present soft, distention and tenderness (Mild bilateral lower abdominal tenderness); Absent guarding or rebound Extremities Exam Extremities exam: Present normal inspection and full ROM Back Exam Back exam: Present normal inspection and full ROM Neurological Exam Neurological exam: Present alert and oriented X3 Psychiatric Psychiatric exam: Present normal affect and normal mood Skin Skin exam: Present warm and dry Medical Decision Making Medical Records Medical records reviewed: Yes I reviewed the patient's medical records. Screening: Per USPSTF and CDC recommendations, given the prevalence of disease in our region, it is our hospital?s policy to screen for HIV and viral Hepatitis for all patients aged 18 and over and those with ongoing risk factors. Edmund Inquiry Pt receiving controlled substance: No Vital Signs: 11/12/24 17:30 11/12/24 17:37 11/12/24 17:46 Temperature 98.8 F Temperature Source Oral Pulse Rate 63 61 Pulse Rate [Right Brachial] 66 Respiratory Rate 18 Blood Pressure 141/75 H 105/69 L Blood Pressure [Right Arm] 127/73 Blood Pressure Mean [Right Arm] 91 Blood Pressure Source [Right Arm] Automatic Cuff Blood Pressure Position Blood Pressure Position [Right Arm] Sitting 02 Sat by Pulse Oximetry 100 100 99 Oxygen Delivery Method Room Air 11/12/24 19:00 11/12/24 19:15 11/12/24 19:30 Temperature Temperature Source Pulse Rate 59 L 53 L 52 L Pulse Rate [Right Brachial] Respiratory Rate Blood Pressure 118/66 109/51 L 114/63 Blood Pressure [Right Arm] Blood Pressure Mean [Right Arm] Blood Pressure Source [Right Arm] Blood Pressure Position Blood Pressure Position [Right Arm] 02 Sat by Pulse Oximetry 98 98 99 Oxygen Delivery Method 11/12/24 19:46 11/12/24 20:00 11/12/24 20:37 Temperature 98.1 F Temperature Source Oral Pulse Rate 63 58 L 54 L Pulse Rate [Right Brachial] Respiratory Rate 16 Blood Pressure 114/56 L 107/63 L 116/70 Blood Pressure [Right Arm] Blood Pressure Mean [Right Arm] Blood Pressure Source [Right Arm] Blood Pressure Position Sitting Blood Pressure Position [Right Arm] 02 Sat by Pulse Oximetry 96 97 Oxygen Delivery Method Room Air Lab Data Lab results reviewed: Yes I reviewed the patient's lab results. Lab Results 11/12/24 17:35: WBC 5.9, RBC 5.01, Hgb 15.4, Hct 43.3, MCV 86.4, MCH 30.7, MCHC 35.6 H, RDW 12.0, Plt Count 240, MPV 10.3, Neut % (Auto) 61.7, Lymph % (Auto) 27.9, Rains % (Auto) 7.8, Eos % (Auto) 1.7, Baso % (Auto) 0.7, Neut # (Auto) 3.6, Lymph # (Auto) 1.6, Rains # (Auto) 0.5, Eos # (Auto) 0.1, Baso # (Auto) 0.0, Sodium 140, Potassium 3.6, Chloride 106, Carbon Dioxide 25, Anion Gap 12.6, BUN 14, Creatinine 1.00, Estimated Creat Clear 109, Estimated GFR 94, Est GFR ( Amer) 114, Glucose 101 H, Calcium 10.0, Total Bilirubin 0.6, AST 28, ALT 17, Alkaline Phosphatase 85, Troponin I < 0.01, Total Protein 8.2, Albumin 5.1 H, Globulin 3.1, Albumin/Globulin Ratio 1.6, Lipase 47 11/12/24 18:45: SARS-CoV-2 (PCR) Not detected, Influenza Type A (PCR) Not detected, Influenza Type B (PCR) Not detected, RSV (PCR) Not detected, Rhinovirus (PCR) Not detected, Group A Strep Rapid Negative 11/12/24 18:50: Urine Color Yellow, Urine Appearance Clear, Urine pH 6.0, Ur Specific Treece 1.020, Urine Protein Negative, Urine Glucose (UA) Negative, Urine Ketones Trace, Urine Blood Negative, Urine Nitrate Negative, Urine Bilirubin 1+ A, Urine Urobilinogen 0.2, Ur Leukocyte Esterase Negative, Urine RBC Occasional, Urine WBC Occasional, Ur Squamous Epith Cells None, Urine Bacteria Trace, Urine Mucus 2+, Ur C. trach DNA (PCR) Negative, U N.gonorrhoeae DNA PCR Negative, T. vaginalis (PCR) Negative 11/12/24 17:35 11/12/24 17:35 Orders (Tests/Meds): ED MEDICATIONS Discontinued Medications Generic Name Dose Route Start Last Admin Trade Name Freq PRN Reason Stop Dose Admin Acetaminophen 1,000 mg 11/12/24 18:26 11/12/24 18:43 Acetaminophen 500mg Tab PO 11/12/24 18:27 1,000 mg ONCE ONE Administration Dicyclomine HCl 20 mg 11/12/24 19:38 11/12/24 19:46 Dicyclomine 10mg Capsule PO 11/12/24 19:39 20 mg ONCE ONE Administration Iopamidol 75 ml 11/12/24 18:33 11/12/24 18:34 Iopamidol-370 (76%);100ml Bottle IV 11/12/24 18:34 75 ml ONCE ONE Administration Ketorolac Tromethamine 30 mg 11/12/24 18:26 11/12/24 18:43 Ketorolac 30mg/Ml Vial IV 11/12/24 18:27 30 mg ONCE ONE Administration Sodium Chloride 10 ml 11/12/24 18:33 11/12/24 18:34 Sodium Chloride 0.9% 10ml Syr (Rad Only) IV 11/12/24 18:34 10 ml ONCE ONE Administration Tetracycl/Hydrocort/Nystatin/Diphen 15 ml 11/12/24 19:39 11/12/24 19:46 Magic Mouthwash 300ml Bottle PO 11/12/24 19:40 15 ml ONCE ONE Administration ORDERS Category Date Time Status CT abdomen pelvis w con Stat Cat Scan 11/12/24 18:26 Completed XR chest portable Stat Exams 11/12/24 18:06 Completed Complete Blood Count Auto Diff Stat Lab 11/12/24 17:35 Completed Comprehensive Metabolic Panel Stat Lab 11/12/24 17:35 Completed Lipase Stat Lab 11/12/24 17:35 Completed Mini Respiratory Panel Stat Lab 11/12/24 18:45 Completed Strep Scrn Group A (Rapid) Stat Lab 11/12/24 18:45 Completed Troponin I Stat Lab 11/12/24 17:35 Completed UA [Urinalysis and Microscopic] Stat Lab 11/12/24 18:50 Completed Urine Chlam/Gono/Trich ([facility]) Stat Lab 11/12/24 18:50 Completed Strep Screen Confirmation Stat Micro 11/12/24 18:45 Completed Urine Culture Stat Micro 11/12/24 18:50 Completed Medical Decision Narrative: Patient is an otherwise healthy 23-year-old male who presented to the emergency department with chest pain sore throat and abdominal pain. On arrival, patient is hemodynamically stable, vital signs. Differential includes but not limited to: Myocarditis, pericarditis, viral syndrome, ACS/VA, intra-abdominal process including appendicitis, urinary tract infection, viral pharyngitis, strep pharyngitis, amongst others. Patient's labs were reviewed and interpreted by myself, CBC showed no leukocytosis, hemoglobin stable. Initial troponin less than 0.01, second troponin not obtained given patient's symptoms 1 to 2 days. Lipase normal. UA had some bacteria, no urinary symptoms therefore was not treated and urine culture was obtained. Respiratory panel is negative. Strep screen is negative. Chest x-ray was reviewed and interpreted by myself and showed no acute focal function, pneumothorax, pleural effusion or other acute cardiopulmonary process. CT scan of the abdomen was reviewed and interpreted by myself and showed no acute pathology. Although PE was considered given patient's chest pain, patient was PERC negative. Patient's EKG was reviewed and interpreted by myself and showed normal sinus rhythm without acute ST or T wave changes since there is ischemia. Patient sore throat was treated with Magic mouthwash. Patient was given symptomatic management in the emergency department. Given patient's otherwise unremarkable workup with patient discharged home. Return precautions were discussed. Critical Care Critical Care Time Critical Care Time: No
[2024-11-12 18:22] LABS: Alanine Aminotransferase 17 U/L (12-78); Albumin Level 5.1 g/dl (3.5-5.0); Albumin/Globulin Ratio 1.6 (1.1-1.8); Alkaline Phosphatase 85 U/L (38-126); Anion Gap 12.6 mEq/L (5-15); Aspartate Amino Transferase 28 U/L (17-59); Bilirubin,Total 0.6 mg/dl (0.2-1.3); Blood Urea Nitrogen 14 mg/dl (9-20); Calcium 10.0 mg/dl (8.4-10.2); Carbon Dioxide 25 mmol/L (22.0-30.0); Chloride 106 mmol/L (98-107); Creatinine Clearance Estimated 109 mL/min (50-200); Creatinine,Serum 1.00 mg/dl (0.66-1.25); Estimated Glomerular Filt Rate 94 ml/min (>60); GFR (African American) 114 ML/MIN (>60); Globulin 3.1 g/dL (1.3-3.2); Glucose 101 mg/dl (74-100); Potassium 3.6 mmoL/L (3.5-5.1); Sodium 140 mmol/L (136-145); Total Protein,Serum 8.2 g/dl (6.3-8.2)
--- NOTE | 2024-11-12 18:26 | CT_ITS ---
PROCEDURE INFORMATION: Exam: CT Abdomen And Pelvis With Contrast Exam date and time: 11/12/2024 6:35 PM Age: 23 years old Clinical indication: Abdominal tenderness; Additional info: Rlq abdominal tenderness TECHNIQUE: Imaging protocol: Computed tomography of the abdomen and pelvis with contrast. Total images: 298 Radiation optimization: All CT scans at this facility use at least one of these dose optimization techniques: automated exposure control; mA and/or kV adjustment per patient size (includes targeted exams where dose is matched to clinical indication); or iterative reconstruction. Contrast material: ISOVUE; Contrast volume: 75 ml; Contrast route: IV; COMPARISON: CT ABDOMEN PELVIS W CON 03/02/2024 10:37 AM FINDINGS: Lungs: Lung bases are clear. Heart: Normal heart size. Liver: Focal fatty infiltration near the falciform ligament. Otherwise, unremarkable liver. Gallbladder and biliary ducts: Normal. No calcified stones. No ductal dilation. Pancreas: Normal. No ductal dilation. Spleen: Nonenlarged spleen with adjacent splenule. Adrenal glands: Normal. No mass. Kidneys and ureters: 2-3 mm right intrarenal calculus. Otherwise, unremarkable bilateral kidneys. No hydronephrosis. No ureteral stones. Stomach and bowel: Unremarkable stomach and duodenum. No ileus or bowel obstruction. Unremarkable small bowel. Unremarkable colon and rectum. Appendix: Normal appendix. Intraperitoneal space: Unremarkable. No free air. No significant fluid collection. Vasculature: Nonaneurysmal abdominal aorta. Major abdominal vessels enhance appropriately. Pelvic phleboliths. Lymph nodes: Small benign-appearing bilateral inguinal lymph nodes. Urinary bladder: Unremarkable as visualized. Reproductive: Unremarkable as visualized. Bones/joints: Mild lumbar levocurvature is likely positional. No acute osseous abnormality or concerning bone lesions. Sclerotic bone islands in the pelvis. Soft tissues: Unremarkable. IMPRESSION: 1. 2-3 mm nonobstructing right intrarenal calculus. No hydronephrosis. 2. Otherwise, no acute process. 3. Normal appendix.
[2024-11-12] MEDS: IOPAMIDOL-370 (76%);100ML BOTTLE 75 ML IV (18:34)
[2024-11-12] MEDS: SODIUM CHLORIDE 0.9% 10ML SYR (RAD ONLY) 10 ML IV (18:34)
[2024-11-12 18:35] LABS: Troponin I < 0.01 ng/ml (0.00-0.034)
[2024-11-12] MEDS: KETOROLAC 30MG/ML VIAL 30 MG IV (18:43)
[2024-11-12] MEDS: ACETAMINOPHEN 500MG TAB 1000 MG PO (18:43)
[2024-11-12 18:51] LABS: Coronavirus 19, PCR Not Detected (NotDetected); Influenza A, PCR Not Detected (NotDetected); Influenza B, PCR Not Detected (NotDetected)
[2024-11-12 18:53] LABS: Microscopic, Urine URINE MICROSCOPIC (MICROSCOPIC)
[2024-11-12 18:55] LABS: Color,Urine YELLOW (Yellow); Glucose,Urine (UA) Negative (Negative); Ketones,Urine TRACE (Negative); Leukocyte Esterase,Urine Negative (Negative); PH,Urine 6.0 (5.0-8.5); Protein,Urine Negative (Negative); Specific Gravity, Urine 1.020 (1.005-1.030); Urobilinogen,Urine 0.2 EU/dl (0.2)
[2024-11-12 18:59] LABS: Lipase 47 U/L (23-300)
[2024-11-12 19:11] LABS: Strep Scrn Group A (Rapid) Negative (Negative)
[2024-11-12 19:21] LABS: Bilirubin,Urine 1+ (Negative)
[2024-11-12 19:23] LABS: Bacteria,Urine Trace /lpf; Mucus,Urine 2+ /lpf; RBC,Urine Occasional #/hpf (0-3); WBC,Urine Occasional #/hpf (0-3)
[2024-11-12] MEDS: MAGIC MOUTHWASH 300ML BOTTLE 15 ML PO (19:46)
== END 2024-11-12 20:40 | disposition home or self-care (01) ==
PROVIDERS: Emergency Provider Student in an Organized Health Care Education/Training Program
DX: R10.30 Lower abdominal pain, unspecified (principal); R07.9 Chest pain, unspecified; R07.0 Pain in throat
CPT/HCPCS: 71045; 74177; 80053; 81001; 83690; 84484; 85025; 87086; 87430; 87491; 87591; 87631; 87661; 93005; 96374; 99285; J1885; Q9967

== ENCOUNTER 2025-03-16 10:03 | Emergency (ER) | payer OTHER, SELFPAY ==
[2025-03-16 10:04] VITALS: BP 127/95; PULSE 67; RESP 16; TEMP 36.6; O2SAT 97; BMI 20.9
[2025-03-16 10:07] VITALS: BP 127/95; PULSE 64; O2SAT 97
[2025-03-16 10:16] VITALS: BP 127/74; PULSE 61; O2SAT 98
[2025-03-16 10:30] VITALS: BP 124/70; PULSE 62; O2SAT 98
[2025-03-16 10:46] VITALS: BP 120/80; PULSE 64; O2SAT 97
[2025-03-16] MEDS: LIDOCAINE 2% VISCOUS SOL 15ML UDC 15 ML PO (10:54)
[2025-03-16] MEDS: KETOROLAC 30MG/ML VIAL 30 MG IM (10:54)
[2025-03-16] MEDS: CLINDAMYCIN 150MG CAPSULE 300 MG PO (10:55)
--- NOTE | 2025-03-16 11:06 | [facility]H.EDGENADL ---
Discharge Plan Disposition Patient Disposition: Home, Self-Care Prescriptions Prescriptions: New clindamycin HCl [Cleocin HCl] 300 mg capsule 300 mg PO BID 7 Days Qty: 14 0RF ketorolac 10 mg tablet 10 mg PO Q8H 5 Days Qty: 15 0RF No Action buspirone 10 mg tablet 10 mg PO BID Qty: 60 12RF Rx Instructions: Please take 1/2 tablet p.o. nightly x 5 to 7 days and then 1 tablet p.o. nightly x 5 to 7 days and then 1 tablet p.o. twice daily thereafter hydroxyzine pamoate [Vistaril] 25 mg capsule 25 mg PO QID PRN (Reason: itching) Qty: 20 0RF dicyclomine 20 mg tablet 20 mg PO BID 5 Days Qty: 10 0RF ondansetron HCl 4 mg tablet 4 mg PO Q8H PRN (Reason: nausea and vomiting) 1 Days Qty: 10 0RF cephalexin 500 mg capsule 500 mg PO QID 10 Days Qty: 40 0RF mupirocin 2 % ointment 1 applic topical TID 7 Days Qty: 15 0RF metoclopramide HCl [Reglan] 10 mg tablet 10 mg PO Q6H PRN (Reason: nausea and vomiting) Qty: 30 0RF Referrals Follow up/Referrals: Provider,Referral, MD [Primary Care Provider, Medical] - See instructions Activity Restrictions/Add. Instructions Additional Instructions/Restrictions: Increase fluids and rest. Take meds as directed. Please see the dentist [facility]. Clinical Impressions Clinical Impression: Pain, dental Instructions Patient Instructions: DI for Dental Pain Print Language Print Language: [place] Discharge ED Provider: Laci Lopez General Adult HPI <Viridiana Islas (ED), CUSTOM STUDIO COORDINATOR - Last Filed: 03/16/25 11:12> General Chief complaint: Dental/Oral Stated complaint: Infection in left upper gums Time Seen by Provider: 03/16/25 10:17 Mode of Arrival: Ambulatory Source of Information: Patient Description of Symptoms (Recalled from ER Triage Doc. by RN): pt c/o L upper gum pain towards the front of the mouth. pt states he is currently on amoxicillin from the dentist. He reports having steak for dinner and states this typically happens everytime he has steak. pts appointment is feb. 4th with dental. He states the pain is 6/10 and throbbing in nature. pt used oragel with minimal relief. History of Present Illness HPI narrative: 24-year-old male presents to the ED today with complaint of left upper gum pain towards the front of the mouth. States that he is on amoxicillin that he had from the dentist. He reports eating steak last night for dinner and he now has what looks like an ulcer on the gumline. His appointment is May 11 but the dentist told him to call back tomorrow for cancellations. Related Data Previous Rx's ?Medication ?Instructions ?Recorded hydroxyzine pamoate 25 mg capsule 25 mg PO QID PRN itching #20 caps 03/06/24 (Vistaril) buspirone 10 mg tablet 10 mg PO BID #60 tabs 03/09/24 cephalexin 500 mg capsule 500 mg PO QID 10 days #40 caps 03/21/24 mupirocin 2 % topical ointment 1 applic topical TID 7 days #15 03/21/24 grams metoclopramide HCl 10 mg tablet 10 mg PO Q6H PRN nausea and 08/19/24 (Reglan) vomiting #30 tabs dicyclomine 20 mg tablet 20 mg PO BID 5 days #10 tabs 11/12/24 ondansetron HCl 4 mg tablet 4 mg PO Q8H PRN nausea and 11/12/24 vomiting 24 hours #10 tabs clindamycin HCl 300 mg capsule 300 mg PO BID 7 days #14 caps 03/16/25 (Cleocin HCl) ketorolac 10 mg tablet 10 mg PO Q8H 5 days #15 tabs 03/16/25 Allergies Allergy/AdvReac Type Severity Reaction Status Date / Time No Known Allergies Allergy Verified 03/09/24 10:04 [facility] <Viridiana Islas (ED), CUSTOM STUDIO COORDINATOR - Last Filed: 03/16/25 11:12> [facility] Disclaimer: The information contained in this section may have been updated after the patient was seen, as this information can be updated by other users. Medical History (Updated 03/16/25 @ 11:08 by Viridiana Islas (ED), CUSTOM STUDIO COORDINATOR) Constipation Surgical History History of shoulder surgery Family History Other No significant family history Social History Smoking Status: Never smoker alcohol intake: never substance use type: denies use current occupational status: unemployed Travel in the last 8 weeks?: None Have you lived/traveled outside [place] in past 30 days?: No Contact w/someone who lives/traveled outside US past 30 days?: No Exposure to someone with infectious disease in past 14 days?: No Do you have a fever (greater than 100.4 F or 38 C)?: No Have you tested positive for COVID-19?: No Exposed to someone with COVID-19 in past 14 days?: No Do you have a sore throat?: No Do you have a cough?: No Do you have any weakness?: No Do you have any diarrhea?: No Are you experiencing any unusual bleeding?: No Do you have any muscle aches/pain?: No Do you have any abdominal pain?: No Are you experiencing loss of taste or smell?: No <Viridiana Islas (ED), CUSTOM STUDIO COORDINATOR - Last Filed: 03/16/25 11:12> ROS Obtained: Yes Systems reviewed as appropriate & no additional complaints except as documented Physical Exam <Viridiana Islas (ED), CUSTOM STUDIO COORDINATOR - Last Filed: 03/16/25 11:12> General General appearance: alert and in no apparent distress Head Head exam: normocephalic Eye Eye exam: Present PERRL and EOMI ENT ENT exam: Present other (Ulcer like area on the left upper gumline with red) Neck Neck exam: Present full ROM and trachea midline Respiratory Respiratory exam: Present normal lung sounds bilaterally Cardiovascular Cardiovascular exam: Present regular rate, normal rhythm, normal heart sounds, +S1 and +S2 Abdominal Exam Abdominal exam: Present soft and normal bowel sounds Extremities Exam Extremities exam: Present normal inspection, full ROM and normal capillary refill Neurological Exam Neurological exam: Present alert and oriented X3 Skin Skin exam: Present warm, dry and other (Ulcer in the upper gum) Medical Decision Making <Viridiana Islas (ED), CUSTOM STUDIO COORDINATOR - Last Filed: 03/16/25 11:12> Medical Records Screening: Per USPSTF and CDC recommendations, given the prevalence of disease in our region, it is our hospital?s policy to screen for HIV and viral Hepatitis for all patients aged 18 and over and those with ongoing risk factors. Edmund Inquiry Pt receiving controlled substance: No Edmund was queried for this patient: No Vital Signs: 03/16/25 10:04 03/16/25 10:07 03/16/25 10:16 Temperature 97.9 F Temperature Source Oral Pulse Rate 64 61 Pulse Rate [Left] 67 Respiratory Rate 16 Blood Pressure 127/95 H 127/74 Blood Pressure [Right Arm] 127/95 H Blood Pressure Mean [Right Arm] 105 Blood Pressure Source Blood Pressure Source [Right Arm] Automatic Cuff Blood Pressure Position Blood Pressure Position [Right Arm] Sitting 02 Sat by Pulse Oximetry 97 97 98 Oxygen Delivery Method Room Air Room Air Room Air 03/16/25 10:30 03/16/25 10:46 03/16/25 11:22 Temperature 98.0 F Temperature Source Oral Pulse Rate 62 64 59 L Pulse Rate [Left] Respiratory Rate 16 Blood Pressure 124/70 120/80 126/70 Blood Pressure [Right Arm] Blood Pressure Mean [Right Arm] Blood Pressure Source Manual Cuff/ Auscultation Blood Pressure Source [Right Arm] Blood Pressure Position Sitting Blood Pressure Position [Right Arm] 02 Sat by Pulse Oximetry 98 97 Oxygen Delivery Method Room Air Room Air Orders (Tests/Meds): ED MEDICATIONS Discontinued Medications Generic Name Dose Route Start Last Admin Trade Name Freq PRN Reason Stop Dose Admin Clindamycin HCl 300 mg 03/16/25 10:25 03/16/25 10:55 Clindamycin 150mg Capsule PO 03/16/25 10:26 300 mg ONCE ONE Administration Ketorolac Tromethamine 30 mg 03/16/25 10:25 03/16/25 10:54 Ketorolac 30mg/Ml Vial IM 03/16/25 10:26 30 mg ONCE ONE Administration Lidocaine HCl 15 ml 03/16/25 10:25 03/16/25 10:54 Lidocaine 2% Viscous Rody 15ml Udc PO 03/16/25 10:26 15 ml ONCE ONE Administration Medical Decision Narrative: patient is a 24-year-old male presenting to the emergency department for evaluation of gum pain. Patient is hemodynamically stable and nontoxic-appearing upon arrival, afebrile. Differential diagnosis includes abscess, gum infection, among other. Patient given dental balls here along with Toradol injection and clindamycin. Patient will be DC'd with Toradol and clindamycin. He is going to call the dentist tomorrow for openings and he is on the emergency list for dentist. Patient safe for discharge home <Laci Lopez MD - Last Filed: 03/16/25 15:01> Vital Signs: 03/16/25 10:04 03/16/25 10:07 03/16/25 10:16 Temperature 97.9 F Temperature Source Oral Pulse Rate 64 61 Pulse Rate [Left] 67 Respiratory Rate 16 Blood Pressure 127/95 H 127/74 Blood Pressure [Right Arm] 127/95 H Blood Pressure Mean [Right Arm] 105 Blood Pressure Source Blood Pressure Source [Right Arm] Automatic Cuff Blood Pressure Position Blood Pressure Position [Right Arm] Sitting 02 Sat by Pulse Oximetry 97 97 98 Oxygen Delivery Method Room Air Room Air Room Air 03/16/25 10:30 03/16/25 10:46 03/16/25 11:22 Temperature 98.0 F Temperature Source Oral Pulse Rate 62 64 59 L Pulse Rate [Left] Respiratory Rate 16 Blood Pressure 124/70 120/80 126/70 Blood Pressure [Right Arm] Blood Pressure Mean [Right Arm] Blood Pressure Source Manual Cuff/ Auscultation Blood Pressure Source [Right Arm] Blood Pressure Position Sitting Blood Pressure Position [Right Arm] 02 Sat by Pulse Oximetry 98 97 Oxygen Delivery Method Room Air Room Air Orders (Tests/Meds): ED MEDICATIONS Discontinued Medications Generic Name Dose Route Start Last Admin Trade Name Freq PRN Reason Stop Dose Admin Clindamycin HCl 300 mg 03/16/25 10:25 03/16/25 10:55 Clindamycin 150mg Capsule PO 03/16/25 10:26 300 mg ONCE ONE Administration Ketorolac Tromethamine 30 mg 03/16/25 10:25 03/16/25 10:54 Ketorolac 30mg/Ml Vial IM 03/16/25 10:26 30 mg ONCE ONE Administration Lidocaine HCl 15 ml 03/16/25 10:25 03/16/25 10:54 Lidocaine 2% Viscous Rody 15ml Udc PO 03/16/25 10:26 15 ml ONCE ONE Administration Medical Decision Narrative: patient is a 24-year-old male presenting to the emergency department for evaluation of gum pain. Patient is hemodynamically stable and nontoxic-appearing upon arrival, afebrile. Differential diagnosis includes abscess, gum infection, among other. Patient given dental balls here along with Toradol injection and clindamycin. Patient will be DC'd with Toradol and clindamycin. He is going to call the dentist tomorrow for openings and he is on the emergency list for dentist. Patient safe for discharge home. Laci Lopez MD: I was consulted by the DEREK, and we discussed the complexity of the problems being addressed. I approved the treatment and management plan for this patient's care in the emergency department, thus performing a substantive portion of the medical decision making. Patient is ranging his jaw freely no concern for deep space infection no periapical abscess that would require drainage at this time. Critical Care <Viridiana Islas (ED), CUSTOM STUDIO COORDINATOR - Last Filed: 03/16/25 11:12> Critical Care Time Critical Care Time: No
[2025-03-16 11:22] VITALS: BP 126/70; PULSE 59; RESP 16; TEMP 36.7; O2SAT 98
== END 2025-03-16 11:25 | disposition home or self-care (01) ==
PROVIDERS: Emergency Provider Emergency Medicine
DX: K08.89 Other specified disorders of teeth and supporting structures (principal)
CPT/HCPCS: 96372; 99283; 99284; J1885